=== PATIENT | female | born 1995 | race Hispanic/Latino ===

== ENCOUNTER 2017-12-30 10:03 | Emergency (ER) | payer SELFPAY ==
[2017-12-30 12:31] LABS: Bilirubin Negative (Negative); Blood, Urine Large (Negative); Clarity CLEAR (Clear); Glucose, Urine (Dipstick) >=1000 mg/dL (Negative); Leukocyte Negative (Negative); Nitrite Negative (Negative); Protein, Urine (Dipstick) Negative (Neg-Trace); pH, Urine 5.5 (5.0-9.0)
[2017-12-30 12:34] LABS: Specific Gravity, Urine 1.046 (1.002-1.036)
[2017-12-30 12:36] LABS: Bacteria/HPF 1+ HPF (None Seen); Hyaline Casts/LPF 0-3 HYALINE CAST LPF (0-3 Hyaline); RBC/HPF GREATER THAN 50-TNTC HPF (0-3); Squamous Epithelial 0-3 HPF (0-3)
--- NOTE | 2017-12-30 13:26 | ULT ---
PELVIC SONOGRAM TRANSABDOMINAL AND TRANSVAGINAL IMAGING WITH DUPLEX EVALUATION: History: Vaginal bleeding. Pelvic pain. FINDINGS: Urinary bladder is decompressed. Retroverted uterus measures 9.8 cm. Endometrium 2.6 cm with heteroge neous stripe. It extends into the cervical canal. No free fluid within the pelvis. Right ovary is 2.5 cm and left is 2.3 cm. Each contains follicles and demonstrates good color and spe ctral doppler flow. IMPRESSION: 1. Markedly endometrium of 2.6 cm. No evidence of intrauterine gestation. Close continued clinical an d sonographic follow up is required regarding possibility of ectopic . 2. Retroverted uterus. POS: [facility]
== END 2017-12-30 13:15 | disposition home or self-care (01) ==
LOC: ERS 10:03
DX: N93.9 Abnormal uterine and vaginal bleeding, unspecified (principal); E10.9 Type 1 diabetes mellitus without complications
CPT/HCPCS: 36415; 76856; 81003; 81015; 84702; 86900; 86901

== ENCOUNTER 2018-08-31 21:33 | Emergency (ER) | payer SELFPAY ==
[2018-08-31 22:42] LABS: Bilirubin Negative (Negative); Blood, Urine Large (Negative); Clarity CLOUDY (Clear); Glucose, Urine (Dipstick) >=1000 mg/dL (Negative); Leukocyte Negative (Negative); Nitrite Negative (Negative); Protein, Urine (Dipstick) Negative (Neg-Trace); Specific Gravity, Urine 1.034 (1.002-1.036); Urobilinogen 0.2 mg/dL (0.2-1.0); pH, Urine 6.5 (5.0-9.0)
[2018-08-31 22:44] LABS: Bacteria/HPF None Seen HPF (None Seen); Hyaline Casts/LPF 0-3 HYALINE CAST LPF (0-3 Hyaline); Pathc Cast-AUWi Flag 0.27 (0-2.49); RBC/HPF GREATER THAN 50-TNTC HPF (0-3); Squamous Epithelial 0-3 HPF (0-3)
[2018-08-31 23:00] LABS: ALT (SGPT) 12 U/L (8-55); AST (SGOT) 10 U/L (5-34); Albumin 4.1 g/dL (3.5-5.0); Alkaline Phosphatase 141 U/L (40-150); Anion Gap 15 mmol/L (10-20); BUN (Urea Nitrogen) 11 mg/dL (7.0-18.7); Bilirubin, Total 0.2 mg/dL (0.2-1.2); Calc. Creatinine Clearance 0 mL/min (70-130); Calcium 9.7 mg/dL (7.8-10.44); Carbon Dioxide 23 mmol/L (22-29); Chloride 97 mmol/L (98-107); Estimated GFR-MDRD 82; Globulin 3.8 g/dL (2.4-3.5); Glucose 546 mg/dL (70-105); Potassium 4.1 mmol/L (3.5-5.1); Protein, Total 7.9 g/dL (6.0-8.3); Sodium 131 mmol/L (136-145)
[2018-08-31 23:09] LABS: #Basophils 0.1 thou/uL (0.0-0.2); #Eosinphils 0.2 thou/uL (0.0-0.7); #Lymphocytes 3.8 thou/uL (1.20-3.40); #Monocytes 0.8 thou/uL (0.11-0.59); #Neutrophils 6.5 thou/uL (1.40-6.50); %Basophils 0.7 % (0.0-1.0); %Eosinophils 1.6 % (0.0-10.0); %Lymphocytes 33.2 % (21.0-51.0); %Monocytes 7.1 % (0.0-10.0); %Neutrophils 57.4 % (42.0-75.0); Hemoglobin 12.4 g/dL (12.0-16.0); Mean Corpuscular HGB CONC 32.2 g/dL (32.0-36.0); Mean Corpuscular Hemoglobin 23.7 pg (27.0-31.0); Mean Corpuscular Volume 73.8 fL (78.0-98.0); Mean Platelet Volume 8.3 fL (7.4-10.4); Platelet Count 427 thou/uL (130-400); RBC Distribution Width 14.3 % (11.5-14.5); Red Blood Cell (RBC) Count 5.24 mill/uL (4.20-5.40); White Blood Cell (WBC) Count 11.4 thou/uL (4.8-10.8)
--- NOTE | 2018-09-01 07:33 | ULT ---
PELVIC ULTRASOUND CHU SCALE AND DOPPLER COLOR FLOW IMAGING WITH SPECTRAL ANALYSIS PERFORMED: INDICATION: Pain, vaginal bleeding, positive beta HCG is reported. FINDINGS: There is evidence of a gestational sac with an internal yolk sac. pole is not elicited. On th e basis of sonographic imaging, this corresponds to an approximate 6-week 2-day gestation. Doppler e valuation is performed at the adnexa bilaterally which does reveal vascularity of each ovary, with do cumented waveforms. There is no significant free pelvic fluid. IMPRESSION: Evidence of gestational sac with internal yolk sac. pole is not demonstrated on this exam. Th e gestational age by ultrasound of 6 weeks 2 days typically reveals viable intrauterine gestation wit h cardiac activity, although this is not elicited on this exam. Therefore, recommend short-term imag ing followup as well as beta HCG values to exclude the possibility of a failed 1st trimester pregnanc y which cannot be excluded on the basis of this exam. CODE T
== END 2018-09-01 00:44 | disposition home or self-care (01) ==
LOC: ERS 21:33
DX: O20.0 Threatened abortion (principal); Z3A.01 Less than 8 weeks gestation of pregnancy
CPT/HCPCS: 36415; 76856; 80053; 81003; 81015; 84702; 85025; 86900; 86901

== ENCOUNTER 2019-12-12 03:44 | Inpatient (IN) | payer OTHER, SELFPAY ==
[2019-12-12] MEDS ORDERED: Ondansetron PF 4 MG/2 ML Vial ONE ×2 (04:33→04:37)
[2019-12-12] MEDS ORDERED: Morphine 4 MG/ML VIAL ONE (04:33)
[2019-12-12 04:41] LABS: Hemoglobin 12.9 g/dL (12.0-16.0); Mean Corpuscular HGB CONC 30.7 g/dL (32.0-36.0); Mean Corpuscular Hemoglobin 25.4 pg (27.0-31.0); Mean Corpuscular Volume 82.9 fL (78.0-98.0); Mean Platelet Volume 9.2 fL (7.4-10.4); Platelet Count 344 thou/uL (130-400); RBC Distribution Width 13.7 % (11.5-14.5); Red Blood Cell (RBC) Count 5.08 mill/uL (4.20-5.40); White Blood Cell (WBC) Count 28.1 thou/uL (4.8-10.8)
[2019-12-12 04:42] LABS: BHCG - Serum Negative (NEGATIVE); Pregs Control Background? CLEAR/WHITE (CLR/WHITE); Pregs Control Bar Appear? YES (CONTROL BAR)
[2019-12-12 04:52] LABS: Bacteria/HPF None Seen HPF (None Seen); Bilirubin Negative (Negative); Blood, Urine Negative (Negative); Clarity Clear (Clear); Glucose, Urine (Dipstick) Greater than 1000 mg/dL (Negative); Ketone, Urine Greater than 150 mg/dL (Negative); Leukocyte Negative Leu/uL (Negative); Nitrite Negative (Negative); Protein, Urine (Dipstick) 70 mg/dL (Neg-Trace); RBC/HPF 0-3 HPF (0-3); Specific Gravity, Urine 1.028 (1.002-1.036); Squamous Epithelial 0-3 HPF (0-3); Urobilinogen Normal mg/dL (Less than 2); pH, Urine 5.5 (5.0-9.0)
[2019-12-12 04:57] LABS: ALT (SGPT) Less than 7 U/L (8-55); AST (SGOT) 6 U/L (5-34); Alkaline Phosphatase 121 U/L (40-110); BUN (Urea Nitrogen) 4 mg/dL (7.0-18.7); Bilirubin, Total 0.3 mg/dL (0.2-1.2); Calc. Creatinine Clearance 0 mL/min (70-130); Calcium 8.8 mg/dL (7.8-10.44); Chloride 108 mmol/L (98-107); Estimated GFR-MDRD 58; Globulin 3.7 g/dL (2.4-3.5); Glucose 450 mg/dL (70-105); Protein, Total 7.7 g/dL (6.0-8.3); Sodium 136 mmol/L (136-145)
[2019-12-12 05:00] LABS: Magnesium 1.6 mg/dL (1.6-2.6); Phosphorus 4.2 mg/dL (2.3-4.7)
[2019-12-12 05:01] LABS: Carbon Dioxide Less than 8 mmol/L (22-29)
[2019-12-12] MEDS ORDERED: Insulin Regular 300 UNITS/3 ML VIAL ONE (05:03)
[2019-12-12 05:23] LABS: MDiff Complete? YES
[2019-12-12 05:24] LABS: Band 34 % (5-11); Lymphocytes 18 % (21-51); Metamyelocyte 1 % (0-0); Monocytes 6 % (0-10); Myelocyte 1 % (0-0); Neutrophil 40 % (42-75); Platelet Morphology Comment Appears Adequate
[2019-12-12] MEDS ORDERED: cefTRIAXone\\ROCEPHIN 2 GM VIAL ONE (05:53)
[2019-12-12] MEDS ORDERED: Azithromycin 500 MG VIAL ONE (05:53)
[2019-12-12 06:42] LABS: pH, Arterial 7.07 (7.35-7.45)
[2019-12-12 06:44] LABS: Actual Bicarbonate (HCO3a) 3.4 mEq/L (22-28); Base Excess (BEa) -24.6 mEq/L (-2.0 to +3.0); Carboxyhemoglobin (COHb) 0.3 gm% (0.0-3.0); Hemoglobin (Hb) 12.9 g/dL (12.0-16.0)
[2019-12-12 06:45] LABS: Analyzer IN Cardio ER; Potassium - ABG Lab 3.36 mmol/L (3.70-5.30); Puncture Site LBRACH
--- NOTE | 2019-12-12 06:51 | PDOC.HHP ---
Hospitalist HPI - History of Present Illness neck pain History of Present Illness: THis is a 24 year old female with type I diabetes who presented to the ER with neck pain. THe patient states that she was laying on the side of her bed when she started experiencing severe neck pain. She switched positions and turned in a prone position which made the pain worst. SHe reports the neck pain was so severe she could not even stand up. She had no tingling or numbness in her arms , no chest pain, but some shortness of breath. She denied headache, photophobia , nausea, vomiting, abdominal pain, polydipsia or polyuria. She denies diarrhea or constipation. She had a cough which has resolved, no fevers or chills. THe patient states she takes levemir 20 units bid at home, took both of her doses yesterday. She states she ate two slices of wheat bread with turkey for dinner last night. Her blood sugars typically range from 160-200 . She states she had Salmonella food poisoning earlier this spring and lost 20 pounds, and has been unable to gain weight since then. Currently her weight is 65 pounds per nursing. ED Course: THe patient presented to the ER and was noted to be afebrile but tachycardic. Labs were notable for a glucose of 450, bicarbonate of 8, betahydroxybutyrate of 8.87. THe patient had a normal chest Xray. ABG was ordered and pending. Morphine was ordered for neck pain with improvement. Currently patient states she is thirsty. Hospitalist ROS - Review of Systems Constitutional: denies: fever, chills Eyes: denies: pain, vision change Respiratory: reports: cough (resolved), shortness of breath Cardiovascular: reports: palpitations Gastrointestinal: denies: nausea, vomiting, abdominal pain, diarrhea Genitourinary: denies: dysuria, frequency, incontinence Musculoskeletal: reports: neck pain. denies: arm pain, back pain Skin: denies: rash, lesions Neurological: denies: weakness, numbness Hospitalist History - Past Medical History Other Medical History: Type I Diabetes - Past Surgical History Past Surgical History: reports: no pertinent history - Family History Other Family History: type I diabetes - Social History Smoking Status: Never smoker Alcohol: reports: None - Exam General Appearance: NAD, awake alert General - other findings: appears slightly underweight Eye: PERRL, anicteric sclera ENT: normocephalic atraumatic, no oropharyngeal lesions Neck: no JVD Heart: RRR, no murmur, no gallops, no rubs Respiratory: CTAB, no wheezes, no rales, no ronchi Gastrointestinal: soft, non-tender, non-distended, normal bowel sounds Extremities: no cyanosis, no clubbing, no edema Skin: normal turgor, no lesions, no rashes Neurological: cranial nerve grossly intact, normal sensation to touch, no focal deficits, no new deficit Neurological - other findings: no nuchal rigidity, negative Kernig and Brudzinski sign Musculoskeletal: normal tone, normal strength, no muscle wasting Musculoskeletal - other findings: full ROM Of neck Psychiatric: normal affect, normal behavior, A&O x 3 Hospitalist Results - Labs Result Diagrams: 12/12/19 04:10 12/12/19 04:10 Lab results: WBC 28.1 thou/uL (4.8-10.8) H 12/12/19 04:10 Hgb 12.9 g/dL (12.0-16.0) 12/12/19 04:10 Hct 42.2 % (36.0-47.0) 12/12/19 04:10 MCV 82.9 fL (78.0-98.0) 12/12/19 04:10 Plt Count 344 thou/uL (130-400) 12/12/19 04:10 Band Neuts % (Manual) 34 % (5-11) H 12/12/19 04:10 ABG pH 7.07 (7.35-7.45) L* 12/12/19 06:35 ABG pCO2 12.0 mmHg (35.0-45.0) L* 12/12/19 06:35 ABG pO2 96.0 mmHg (80.0-100.0) 12/12/19 06:35 Sodium 136 mmol/L (136-145) 12/12/19 04:10 Potassium 4.0 mmol/L (3.5-5.1) 12/12/19 04:10 Chloride 108 mmol/L (98-107) H 12/12/19 04:10 Carbon Dioxide Less than 8 mmol/L (22-29) L* 12/12/19 04:10 BUN 4 mg/dL (7.0-18.7) L 12/12/19 04:10 Creatinine 1.14 mg/dL (0.6-1.1) H 12/12/19 04:10 Glucose 450 mg/dL (70-105) H 12/12/19 04:10 Lactic Acid 3.3 mmol/L (0.5-2.2) H 12/12/19 04:10 Calcium 8.8 mg/dL (7.8-10.44) 12/12/19 04:10 Total Bilirubin 0.3 mg/dL (0.2-1.2) 12/12/19 04:10 AST 6 U/L (5-34) 12/12/19 04:10 ALT Less than 7 U/L (8-55) L 12/12/19 04:10 Alkaline Phosphatase 121 U/L (40-110) H 12/12/19 04:10 Serum Total Protein 7.7 g/dL (6.0-8.3) 12/12/19 04:10 Albumin 4.0 g/dL (3.5-5.0) 12/12/19 04:10 Urine Ketones Greater than 150 mg/dL (Negative) A 12/12/19 04:25 Urine Blood Negative (Negative) 12/12/19 04:25 Urine Nitrite Negative (Negative) 12/12/19 04:25 Ur Leukocyte Esterase Negative Joey/uL (Negative) 12/12/19 04:25 Urine RBC 0-3 HPF (0-3) 12/12/19 04:25 Urine WBC 4-6 HPF (0-3) A 12/12/19 04:25 Ur Squamous Epith Cells 0-3 HPF (0-3) 12/12/19 04:25 Urine Bacteria None Seen HPF (None Seen) 12/12/19 04:25 - EKG Interpretation EKG: sinus tachycardia Hospitalist H&P A/P - Plan Plan: This is a 24 year old female with type I Diabetes who presented with DKA DKA - patient was started on insulin drip. Will check fingersticks q1 hour NEck pain - check neck X ray. Likely from severe dehydration - pt reports improvement #Mild OCTAVIO #Lactic acidosis - creatinine 1.1, continue IV fluids and trend BMP in the afternoon - was 3.3, will repeat in afternoon Leukocytosis - WBC noted to be 28, no signs of infection currently will hold off on antibiotics - CXR and UA normal Mild ALP elevation - asymptomatic with no abd pain, will monitor DVT prophylaxis: heparin SC Code status: full code
[2019-12-12] MEDS ORDERED: Dextrose 5 %-0.45 % NaCl 1,000 ML IV PRN (06:54)
[2019-12-12] MEDS ORDERED: Sodium Chloride 0.9% 1,000 ML IV PRN ×4 (06:54)
[2019-12-12] MEDS ORDERED: Electrolyte Replacement Protoc 1 EACH EACH IVPB ONE (06:54)
[2019-12-12] MEDS ORDERED: NS 0.9% w/ 20 MEQ KCL 1,000 ML IV PRN ×2 (06:54)
[2019-12-12] MEDS ORDERED: NS 0.9% w/ 20 MEQ KCL 1,000 ML IV SCH (07:00)
[2019-12-12] MEDS ORDERED: Electrolyte Replacement Protocol FS PRN (07:15)
--- NOTE | 2019-12-12 07:19 | RAD ---
SINGLE VIEW CHEST: Date: 12/12/2019 COMPARISON: None. HISTORY: Cough with back and neck pain. FINDINGS: Single view of the chest shows a normal sized cardiomediastinal silhouette. Opacities are seen projec ting over both lung bases, which likely represent nipple shadows. No definite consolidation, mass, or pleural effusion seen. IMPRESSION: No evidence of acute cardiopulmonary disease. POS: [facility]
[2019-12-12 07:59] LABS: Lactic Acid 2.2 mmol/L (0.5-2.2)
[2019-12-12] MEDS ORDERED: Magnesium 2 GM/50 ML 2 GM in Premix Bag 1 BAG IVPB SCH (08:00)
[2019-12-12 08:05] LABS: BUN (Urea Nitrogen) Less than 4 mg/dL (7.0-18.7); Calc. Creatinine Clearance 0 mL/min (70-130); Calcium 8.2 mg/dL (7.8-10.44); Chloride 113 mmol/L (98-107); Estimated GFR-MDRD 79; Glucose 306 mg/dL (70-105); Potassium 3.2 mmol/L (3.5-5.1); Sodium 137 mmol/L (136-145)
[2019-12-12 08:10] LABS: Carbon Dioxide Less than 8 mmol/L (22-29)
[2019-12-12] MEDS ORDERED: Potassium Chloride 40 MEQ in Sodium Chloride 0.9% 250 ML 250 ML IVPB SCH ×2 (08:30→16:00)
--- NOTE | 2019-12-12 09:10 | RAD ---
3 VIEWS CERVICAL SPINE: Date: 12/12/2019 COMPARISON: None. HISTORY: Neck pain, cough. FINDINGS: Three views of the cervical spine show normal height and alignment of the vertebral bodies and interv ertebral discs without fracture or subluxation. No degenerative changes are seen. No prevertebral sof t tissue swelling is seen. IMPRESSION: Unremarkable exam. POS: [facility]
[2019-12-12 11:36] LABS: Anion Gap 16 mmol/L (10-20); BUN (Urea Nitrogen) Less than 4 mg/dL (7.0-18.7); Calc. Creatinine Clearance 0 mL/min (70-130); Calcium 8.2 mg/dL (7.8-10.44); Carbon Dioxide 10 mmol/L (22-29); Chloride 115 mmol/L (98-107); Estimated GFR-MDRD Greater than 90; Glucose 150 mg/dL (70-105); Sodium 138 mmol/L (136-145)
[2019-12-12 11:39] LABS: Potassium 2.9 mmol/L (3.5-5.1)
[2019-12-12] MEDS ORDERED: Acetaminophen 325 MG TAB ONE (12:35)
[2019-12-12] MEDS ORDERED: Iopamidol-370 76% 500 ML 1 ML ONE (13:22)
[2019-12-12 13:26] LABS: Magnesium 1.1 mg/dL (1.6-2.6); Phosphorus 1.3 mg/dL (2.3-4.7)
[2019-12-12] MEDS ORDERED: Potassium Phosphate 22 MMOL in Sodium Chloride 0.9% 250 ML 250 ML IVPB SCH (13:45)
--- NOTE | 2019-12-12 13:54 | CT ---
EXAM: CTA of the chest HISTORY: Neck and back pain for one hour COMPARISON: None TECHNIQUE: Multiple contiguous axial images were obtained a CTA of the chest with contrast per pulmon rosmery embolism protocol. 3-D oblique MIP reformats and direct coronal reformats were performed. FINDINGS: HEART: Normal in size without focal cardiac abnormality. PULMONARY ARTERIES: Normal in caliber without filling defects to suggest pulmonary emboli. MEDIASTINUM: No hilar or mediastinal lymphadenopathy. LUNGS: Multifocal areas of airspace opacity are seen in the left upper and lower lobes with more subt le infiltrates in the right lower lobe. PLEURAL SPACE: No pleural effusion or pneumothorax. CHEST WALL SOFT TISSUES: Unremarkable VISUALIZED OSSEOUS STRUCTURES: No acute abnormality. VISUALIZED SUBDIAPHRAGMATIC STRUCTURES: Unremarkable IMPRESSION: 1. No evidence of pulmonary thromboembolism 2. Multifocal pneumonia
[2019-12-12] MEDS ORDERED: Magnesium Sulfate 4 GM in Sodium Chloride 0.9% 250 ML 250 ML IVPB SCH (15:00)
[2019-12-12 16:15] LABS: Anion Gap 17 mmol/L (10-20); BUN (Urea Nitrogen) Less than 4 mg/dL (7.0-18.7); Calc. Creatinine Clearance 0 mL/min (70-130); Calcium 8.5 mg/dL (7.8-10.44); Carbon Dioxide 10 mmol/L (22-29); Chloride 114 mmol/L (98-107); Estimated GFR-MDRD Greater than 90; Glucose 117 mg/dL (70-105); Sodium 138 mmol/L (136-145)
[2019-12-12 16:16] LABS: Potassium 2.8 mmol/L (3.5-5.1)
[2019-12-12 16:47] VITALS: BMI 16.2
--- NOTE | 2019-12-12 17:41 | PDOC.EVN ---
Event Note - Event Note Event Note: Seen and examined in the emergency department. Patient with significant pulmonary complaints. I added a CT angiography of the chest, please see full report for details, there is no pulmonary embolism identified however there is a bilateral pneumonia with left upper, left lower, and faint right lower infiltrates. Patient does deny definitive covid exposure, however at this time I will add a covid test in place her on respiratory precautions until negative test. I have started IV antibiotics, elevated WBC count which points against covid. Patient's DKA is improving with her anion gap normalizing, bicarbonate normalizing. She is on appropriate DKA protocol and replacing electrolytes as needed.
[2019-12-12 18:38] LABS: Anion Gap 16 mmol/L (10-20); BUN (Urea Nitrogen) Less than 4 mg/dL (7.0-18.7); Calc. Creatinine Clearance 86 mL/min (70-130); Calcium 8.1 mg/dL (7.8-10.44); Carbon Dioxide 10 mmol/L (22-29); Chloride 113 mmol/L (98-107); Estimated GFR-MDRD Greater than 90; Glucose 158 mg/dL (70-105); Potassium 3.6 mmol/L (3.5-5.1); Sodium 135 mmol/L (136-145)
[2019-12-12] MEDS ORDERED: Benzonatate 100 MG CAP PO PRN (19:45)
[2019-12-12] MEDS ORDERED: Docusate 100 MG CAP PO PRN (19:45)
[2019-12-12] MEDS ORDERED: diphenhydrAMINE 25 MG CAP PO PRN (19:45)
[2019-12-12] MEDS ORDERED: Labetalol HCl 100 MG/20 ML VIAL SLOW IVP PRN (19:45)
[2019-12-12] MEDS: D5 1/2 NS w/20 mEq KCL 1,000 ML IV PRN ×2 (20:02→23:41)
[2019-12-12] MEDS ORDERED: Melatonin 3 MG TAB PO PRN (21:00)
[2019-12-12 22:10] LABS: Anion Gap 17 mmol/L (10-20); BUN (Urea Nitrogen) Less than 4 mg/dL (7.0-18.7); Calc. Creatinine Clearance 82 mL/min (70-130); Calcium 8.1 mg/dL (7.8-10.44); Carbon Dioxide 11 mmol/L (22-29); Chloride 110 mmol/L (98-107); Estimated GFR-MDRD Greater than 90; Glucose 307 mg/dL (70-105); Potassium 3.5 mmol/L (3.5-5.1); Sodium 134 mmol/L (136-145)
[2019-12-13 02:59] LABS: Anion Gap 13 mmol/L (10-20); BUN (Urea Nitrogen) Less than 4 mg/dL (7.0-18.7); Calc. Creatinine Clearance 87 mL/min (70-130); Calcium 8.4 mg/dL (7.8-10.44); Carbon Dioxide 13 mmol/L (22-29); Chloride 111 mmol/L (98-107); Estimated GFR-MDRD Greater than 90; Glucose 271 mg/dL (70-105); Sodium 134 mmol/L (136-145)
[2019-12-13] MEDS: D5 1/2 NS w/20 mEq KCL 1,000 ML IV PRN ×5 (03:35→23:17)
[2019-12-13] MEDS: cefTRIAXone\\ROCEPHIN 2 GM in Sodium Chloride 0.9% 100 ML IVPB SCH (04:50)
[2019-12-13] MEDS: Acetaminophen 500 MG TAB PO PRN ×2 (04:51→12:02)
[2019-12-13] MEDS ORDERED: Potassium Chloride 20 MEQ TAB PO SCH ×2 (06:00→10:00)
[2019-12-13] MEDS ORDERED: Magnesium 2 GM/50 ML 2 GM in Premix Bag 1 BAG IVPB SCH (06:00)
[2019-12-13] MEDS: HUMULIN R 100 UNITS in Sodium Chloride 0.9% 100 ML IVPB SCH (06:18)
[2019-12-13 06:49] LABS: Anion Gap 10 mmol/L (10-20); BUN (Urea Nitrogen) Less than 4 mg/dL (7.0-18.7); Calc. Creatinine Clearance 105 mL/min (70-130); Calcium 8.1 mg/dL (7.8-10.44); Carbon Dioxide 15 mmol/L (22-29); Chloride 110 mmol/L (98-107); Estimated GFR-MDRD Greater than 90; Glucose 214 mg/dL (70-105); Sodium 132 mmol/L (136-145)
[2019-12-13 06:53] LABS: Potassium 2.7 mmol/L (3.5-5.1)
[2019-12-13] MEDS: Azithromycin 500 MG in Sodium Chloride 0.9% 250 ML 250 ML IVPB SCH (08:01)
[2019-12-13] MEDS ORDERED: HYDROcodone/Acetaminophen 5/325 mg Tablet PO PRN (10:02)
[2019-12-13] MEDS ORDERED: HYDROcodone/Acetaminophen 7.5/325 mg Tablet PO PRN (10:03)
[2019-12-13 12:27] LABS: #Basophils 0.1 thou/uL (0.0-0.2); #Lymphocytes 1.7 thou/uL (1.20-3.40); #Monocytes 0.8 thou/uL (0.11-0.59); #Neutrophils 9.2 thou/uL (1.40-6.50); %Basophils 0.4 % (0.0-1.0); %Eosinophils 0.4 % (0.0-10.0); %Lymphocytes 14.8 % (21.0-51.0); %Monocytes 6.4 % (0.0-10.0); Hemoglobin 11.9 g/dL (12.0-16.0); Mean Corpuscular HGB CONC 32.1 g/dL (32.0-36.0); Mean Corpuscular Hemoglobin 26.9 pg (27.0-31.0); Mean Corpuscular Volume 83.9 fL (78.0-98.0); Mean Platelet Volume 9.4 fL (7.4-10.4); Platelet Count 205 thou/uL (130-400); RBC Distribution Width 13.8 % (11.5-14.5); Red Blood Cell (RBC) Count 4.43 mill/uL (4.20-5.40); White Blood Cell (WBC) Count 11.8 thou/uL (4.8-10.8)
[2019-12-13 12:28] LABS: SARS-CoV-2 by NAA DETECTED (NotDetected); SARS-CoV-2 orf1ab Positive
[2019-12-13 12:29] LABS: SARS-CoV-2 MS2 Positive; SARS-CoV-2 N Gene Positive; SARS-CoV-2 S Gene Positive
[2019-12-13 12:39] LABS: Anion Gap 11 mmol/L (10-20); BUN (Urea Nitrogen) Less than 4 mg/dL (7.0-18.7); Calc. Creatinine Clearance 123 mL/min (70-130); Calcium 8.4 mg/dL (7.8-10.44); Carbon Dioxide 16 mmol/L (22-29); Chloride 114 mmol/L (98-107); Estimated GFR-MDRD Greater than 90; Glucose 113 mg/dL (70-105); Sodium 137 mmol/L (136-145)
--- NOTE | 2019-12-13 14:55 | CON ---
DATE OF CONSULTATION: HISTORY OF PRESENT ILLNESS: Domi Letser is a 24-year-old female. She is 27 kg, presented to the ER with neck pain. Respiratory rate is 14, blood pressure is good. I do not see a temperature recording in the ER, but her saturations are 100%. Apparently, she then had cough with yellow sputum, but no fever or chills. Apparently, she has type-1 diabetes, takes Levemir 20 units twice a day. PAST MEDICAL HISTORY: Pertinent for diabetes. PREVIOUS SURGERIES: None. CHRONIC MEDICATIONS: Levemir 20 units twice a day. SOCIAL HISTORY: No alcohol or tobacco abuse. ALLERGIES: NONE. REVIEW OF SYSTEMS: Ten-point is negative. PHYSICAL EXAMINATION: VITAL SIGNS: Temperature is 100.8, blood pressure is 88/48, pulse is 61, respiratory rate 18, sats are 90%. CHEST: Crackles without any wheezing. CARDIAC: Normal S1, S2. No gallops. ABDOMEN: No masses. LABORATORY DATA: Blood sugar is 214, bicarb is 15, potassium is 2.7, sodium 132. X-ray shows bilateral infiltrates. CT scan confirms this. Cervical spine x-rays were negative. So far, cultures are negative. IMPRESSION AND PLAN: 1. Bilateral bronchopneumonia, rule out coronavirus positive pneumonia. 2. Uncontrolled diabetes. 3. Electrolyte imbalance. PLAN: I agree with empiric broad-spectrum antibiotics, low-dose steroids. Continue insulin protocol, I have restarted home Levemir. Hopefully, she will not get acidotic. Cultures, sputum if possible. We will follow while on the MICU. Depending on the results of the serology, further recommendation. Consultation note, 70 minutes, 50% direct patient care. Job ID: [id number]
--- NOTE | 2019-12-13 15:47 | PDOC.HOSPP ---
- Subjective Subjective: Seen and examined. She states that she is feeling better than yesterday. She is looking much better after the addition of antibiotics. Her DKA is resolving though not completely resolved yet. We are starting diet. She is feeling hungry and has more energy. She has had only mild cough. She is febrile this morning. Pulmonology on the case. - Objective Vital Signs & Weight: Vital Signs (12 hours) Temp Pulse Ox 12/13/19 08:00 99.0 F 100 12/13/19 07:40 100.8 F H 12/13/19 03:53 101.5 F H Weight Weight 91 lb 14.4 oz Most Recent Monitor Data Heart Rate from ECG 88 NIBP 88/64 NIBP BP-Mean 72 Respiration from ECG 17 SpO2 91 I&O: 12/12/19 12/13/19 12/14/19 06:59 06:59 06:59 Intake Total 3600 Output Total 1350 1300 Balance 2250 -1300 Result Diagrams: 12/13/19 12:18 12/13/19 12:18 Radiology Reviewed by me: Yes Hospitalist ROS - Review of Systems All other systems reviewed; all pertinent +/- noted in HPI/Subj - Medication Medications: Active Medications Generic Name Dose Route Start Last Admin Trade Name Freq PRN Reason Stop Dose Admin Acetaminophen 1,000 mg 12/13/19 04:08 12/13/19 12:02 Tylenol PO 1,000 mg Q6H PRN Administration .FEVER Benzonatate 100 mg 12/12/19 19:45 12/13/19 04:51 Tessalon PO 100 mg Q4H PRN Administration Cough Insulin Human Regular 100 101 mls @ 0 mls/hr 12/12/19 07:00 12/13/19 06:18 units/ Sodium Chloride IVPB 101 mls INF FERNANDO Administration Protocol Titrate Potassium Chloride/Dextrose/Sod Cl 1,000 mls @ 250 mls/hr 12/12/19 06:54 12:06 D5 1/2 Ns W/20 Meq Kcl IV 1,000 mls .Q4H PRN Administration Step 4 of DKA Protocol Protocol Azithromycin 500 mg/ Sodium 250 mls @ 250 mls/hr 12/13/19 09:00 12/13/19 08: 01 Chloride IVPB 250 mls 0900 FERNANDO Administration Ceftriaxone Sodium 2 gm/ 100 mls @ 200 mls/hr 12/13/19 06:00 12/13/19 04:50 Sodium Chloride IVPB 100 mls 0600 FERNANDO Administration - Exam General Appearance: awake alert, ill appearing General - other findings: Cachectic Eye: anicteric sclera ENT: normocephalic atraumatic, moist mucosa Neck: supple, symmetric Heart: RRR, no murmur, no gallops, no rubs Respiratory: no rales, normal chest expansion, no tachypnea, rhonchi, wheezes Gastrointestinal: soft, non-tender, no guarding, no rigidity Extremities: no edema Skin: no lesions, no rashes Neurological: cranial nerve grossly intact, no focal deficits Musculoskeletal: generalized weakness, diffuse muscle atrophy Psychiatric: normal affect, normal behavior, A&O x 3 Hosp A/P (1) Pneumonia due to COVID-19 virus Code(s): U07.1 - COVID-19; J12.89 - OTHER VIRAL PNEUMONIA Status: Acute (2) Bilateral pneumonia Code(s): J18.9 - PNEUMONIA, UNSPECIFIED ORGANISM Status: Acute (3) DKA (diabetic ketoacidoses) Code(s): E11.10 - TYPE 2 DIABETES MELLITUS WITH KETOACIDOSIS WITHOUT COMA Status: Acute (4) Severe protein-calorie malnutrition Code(s): E43 - UNSPECIFIED SEVERE PROTEIN-CALORIE MALNUTRITION Status: Acute (5) Acidosis Code(s): E87.2 - ACIDOSIS Status: Acute (6) Fever Code(s): R50.9 - FEVER, UNSPECIFIED Status: Acute (7) Sepsis Code(s): A41.9 - SEPSIS, UNSPECIFIED ORGANISM Status: Acute - Plan Plan: intermediate medical care unit pulmonology/critical-care consultation, recommendations appreciated on titratable insulin drip for DKA protocol home long-acting insulin being started at lower dose encourage oral intake replace electrolytes as needed IV fluids pulmonary specific antibiotics steroids Covid positive Covid pneumonia versus bacterial pneumonia is likely the inciting event that started diabetic ketoacidosis continue other home medications as able blood pressure control blood sugar control G.I. prophylaxis DVT prophylaxis
[2019-12-13 16:40] LABS: Anion Gap 10 mmol/L (10-20); BUN (Urea Nitrogen) Less than 4 mg/dL (7.0-18.7); Calc. Creatinine Clearance 120 mL/min (70-130); Calcium 7.9 mg/dL (7.8-10.44); Carbon Dioxide 16 mmol/L (22-29); Chloride 114 mmol/L (98-107); Estimated GFR-MDRD Greater than 90; Glucose 210 mg/dL (70-105); Potassium 3.9 mmol/L (3.5-5.1); Sodium 136 mmol/L (136-145)
[2019-12-13] MEDS: methylPREDNISolone Sod Succ 40 MG VIAL IVP SCH (20:05)
[2019-12-13] MEDS: Insulin Glargine 15 UNITS in Pre-Filled Syringe 1 EACH SC SCH (20:05)
[2019-12-13 20:46] LABS: Anion Gap 15 mmol/L (10-20); BUN (Urea Nitrogen) Less than 4 mg/dL (7.0-18.7); Calc. Creatinine Clearance 111 mL/min (70-130); Calcium 8.1 mg/dL (7.8-10.44); Carbon Dioxide 16 mmol/L (22-29); Chloride 108 mmol/L (98-107); Estimated GFR-MDRD Greater than 90; Glucose 199 mg/dL (70-105); Potassium 3.5 mmol/L (3.5-5.1); Sodium 135 mmol/L (136-145)
[2019-12-13] MEDS ORDERED: methylPREDNISolone Sod Succ/PF 125 MG/2 ML VIAL IVP SCH ×2 (21:00)
[2019-12-14] MEDS: HUMULIN R 100 UNITS in Sodium Chloride 0.9% 100 ML IVPB SCH (00:01)
[2019-12-14 00:55] LABS: Anion Gap 12 mmol/L (10-20); BUN (Urea Nitrogen) Less than 4 mg/dL (7.0-18.7); Calc. Creatinine Clearance 123 mL/min (70-130); Calcium 8.2 mg/dL (7.8-10.44); Carbon Dioxide 18 mmol/L (22-29); Chloride 109 mmol/L (98-107); Estimated GFR-MDRD Greater than 90; Glucose 162 mg/dL (70-105); Potassium 3.4 mmol/L (3.5-5.1); Sodium 136 mmol/L (136-145)
[2019-12-14] MEDS: D5 1/2 NS w/20 mEq KCL 1,000 ML IV PRN (05:44)
[2019-12-14] MEDS: cefTRIAXone\\ROCEPHIN 2 GM in Sodium Chloride 0.9% 100 ML IVPB SCH (05:44)
[2019-12-14] MEDS ORDERED: Potassium Chloride 20 MEQ TAB PO SCH (06:30)
[2019-12-14 07:31] LABS: Anion Gap 10 mmol/L (10-20); BUN (Urea Nitrogen) Less than 4 mg/dL (7.0-18.7); Calc. Creatinine Clearance 141 mL/min (70-130); Carbon Dioxide 23 mmol/L (22-29); Chloride 108 mmol/L (98-107); Estimated GFR-MDRD Greater than 90; Glucose 164 mg/dL (70-105); Potassium 3.8 mmol/L (3.5-5.1); Sodium 137 mmol/L (136-145)
--- NOTE | 2019-12-14 10:06 | PRG ---
DATE OF SERVICE: SUBJECTIVE: This morning, she is better, awake, alert, and responsive. I's and O's have been consistently negative. OBJECTIVE: VITAL SIGNS: Sats are 100% on 2 L, blood pressure 94/65, respiratory rate 18, pulse 80. LABORATORY DATA: She was positive for the coronavirus. Blood sugars have improved. Acidosis is better, 23. Electrolytes are normal. ASSESSMENT AND PLAN: 1. Tejeda positive pneumonia. 2. Respiratory failure. 3. Diabetes type 1. She is on low-dose steroids. She probably needs to be switched over to normal saline and home medication resolved. We will follow. Job ID: [id number]
[2019-12-14] MEDS: Azithromycin 500 MG in Sodium Chloride 0.9% 250 ML 250 ML IVPB SCH (10:18)
[2019-12-14] MEDS: Insulin Glargine 15 UNITS in Pre-Filled Syringe 1 EACH SC SCH (10:18)
[2019-12-14] MEDS: methylPREDNISolone Sod Succ 40 MG VIAL IVP SCH (10:19)
[2019-12-14] MEDS ORDERED: Loperamide HCl 2 MG CAP PO PRN (12:05)
[2019-12-14 12:10] LABS: Anion Gap 10 mmol/L (10-20); BUN (Urea Nitrogen) Less than 4 mg/dL (7.0-18.7); Calc. Creatinine Clearance 111 mL/min (70-130); Calcium 8.1 mg/dL (7.8-10.44); Carbon Dioxide 22 mmol/L (22-29); Chloride 104 mmol/L (98-107); Estimated GFR-MDRD Greater than 90; Glucose 307 mg/dL (70-105); Potassium 4.3 mmol/L (3.5-5.1); Sodium 132 mmol/L (136-145)
[2019-12-14] MEDS ORDERED: HumaLOG 300 UNITS/3 ML VIAL SC PRN (14:23)
[2019-12-14] MEDS ORDERED: Dextrose 50% Abboject 50 ML SYRINGE SLOW IVP PRN (14:23)
[2019-12-14] MEDS ORDERED: Dextrose 5% in Water 1,000 ML IV PRN (14:23)
[2019-12-14] MEDS ORDERED: Insulin Glargine 8 UNITS in Pre-Filled Syringe SC SCH (14:30)
[2019-12-14] MEDS: Sodium Chloride 0.9% 1,000 ML IV SCH (14:48)
[2019-12-14] MEDS: HumaLOG 300 UNITS/3 ML VIAL SC PRN ×2 (14:49→16:57)
--- NOTE | 2019-12-14 15:53 | PDOC.HOSPP ---
- Subjective Subjective: Seen and examined. Patient clinically improving. Per DKA has resolved. I'm stopping the insulin drip. She is tolerating diet. With coven pneumonia she is having less shortness of breath, mild coughing. She has now developed diarrhea. Time was given for questions, all answered in detail. - Objective Vital Signs & Weight: Vital Signs (12 hours) Temp Pulse Ox 12/14/19 12:00 96.7 F L 12/14/19 08:00 100 12/14/19 07:00 97.8 F 12/14/19 04:00 98.7 F Weight Admit Weight 91 lb 14.4 oz Weight 91 lb 14.4 oz Most Recent Monitor Data Heart Rate from ECG 96 NIBP 89/68 NIBP BP-Mean 75 Respiration from ECG 19 SpO2 100 I&O: 12/13/19 12/14/19 12/15/19 06:59 06:59 06:59 Intake Total 3600 3995 2605 Output Total 1350 5300 2425 Balance 2250 -1305 180 Result Diagrams: 12/13/19 12:18 12/14/19 11:16 Additional Labs: Accuchecks 12/14/19 12/14/19 12/14/19 07:05 05:27 04:20 POC Glucose 136 H 100 121 H 12/14/19 12/14/19 12/14/19 03:10 01:17 00:28 POC Glucose 121 H 148 H 161 H Radiology Reviewed by me: Yes Hospitalist ROS - Review of Systems All other systems reviewed; all pertinent +/- noted in HPI/Subj - Medication Medications: Active Medications Generic Name Dose Route Start Last Admin Trade Name Freq PRN Reason Stop Dose Admin Acetaminophen 1,000 mg 12/13/19 04:08 12/13/19 12:02 Tylenol PO 1,000 mg Q6H PRN Administration .FEVER Benzonatate 100 mg 12/12/19 19:45 12/13/19 04:51 Tessalon PO 100 mg Q4H PRN Administration Cough Azithromycin 500 mg/ Sodium 250 mls @ 250 mls/hr 12/13/19 09:00 12/14/19 10: 18 Chloride IVPB 250 mls 0900 FERNANDO Administration Sodium Chloride 1,000 mls @ 50 mls/hr 12/14/19 14:30 12/14/19 14:48 Normal Saline 0.9% IV 1,000 mls .Q20H FERNANDO Administration Insulin Human Lispro 0 units 12/14/19 14:23 12/14/19 14:49 Humalog SC 6 unit .AGGRESSIVE SLIDING PRN Administration Aggressive Correctional Scale Sodium Chloride 10 ml 12/14/19 09:00 12/14/19 10:19 Flush - Normal Saline IVF 10 ml Q12HR FERNANDO Administration - Exam General Appearance: NAD, awake alert Eye: PERRL ENT: normocephalic atraumatic, moist mucosa Neck: supple, symmetric, no lymphadenopathy Heart: RRR, no murmur, no gallops, no rubs Respiratory: no rales, normal chest expansion, no tachypnea, rhonchi, wheezes Gastrointestinal: soft, non-tender, no guarding, no rigidity Extremities: no edema Skin: no lesions, no rashes Neurological: cranial nerve grossly intact, no focal deficits Musculoskeletal: generalized weakness Psychiatric: A&O x 3 Hosp A/P (1) Pneumonia due to COVID-19 virus Code(s): U07.1 - COVID-19; J12.89 - OTHER VIRAL PNEUMONIA Status: Acute (2) Bilateral pneumonia Code(s): J18.9 - PNEUMONIA, UNSPECIFIED ORGANISM Status: Acute (3) DKA (diabetic ketoacidoses) Code(s): E11.10 - TYPE 2 DIABETES MELLITUS WITH KETOACIDOSIS WITHOUT COMA Status: Acute (4) Severe protein-calorie malnutrition Code(s): E43 - UNSPECIFIED SEVERE PROTEIN-CALORIE MALNUTRITION Status: Acute (5) Acidosis Code(s): E87.2 - ACIDOSIS Status: Acute (6) Fever Code(s): R50.9 - FEVER, UNSPECIFIED Status: Acute (7) Sepsis Code(s): A41.9 - SEPSIS, UNSPECIFIED ORGANISM Status: Acute - Plan Plan: intermediate medical care unit pulmonology/critical-care consultation, recommendations appreciated Stop insulin drip, DKA resolved home long-acting insulin increase to home dose encourage oral intake replace electrolytes as needed IV fluids continued while having diarrhea pulmonary specific antibiotics steroids Covid positive Covid pneumonia versus bacterial pneumonia is likely the inciting event that started diabetic ketoacidosis continue other home medications as able Immodium for diarrhea blood pressure control blood sugar control G.I. prophylaxis DVT prophylaxis
[2019-12-14] MEDS: Insulin Glargine 20 UNITS in Pre-Filled Syringe 1 EACH SC SCH (21:34)
[2019-12-15] MEDS: HumaLOG 300 UNITS/3 ML VIAL SC PRN ×2 (06:46→16:17)
--- NOTE | 2019-12-15 07:49 | RAD ---
EXAM: Single view of the chest HISTORY: Bilateral pneumonia COMPARISON: 12/12/2019 FINDINGS: Single view of the chest shows a normal sized cardiomediastinal silhouette. There is opacit y in the left lung base. The bones are unremarkable IMPRESSION: Left lower lobe pneumonia
[2019-12-15] MEDS ORDERED: Dexamethasone 4 MG TAB PO SCH (08:00)
--- NOTE | 2019-12-15 11:45 | PRG ---
DATE OF SERVICE: 12/15/2019 SUBJECTIVE: Domi Lester is a 24-year-old female. This morning, she is better. X-ray, left-sided infiltrate. OBJECTIVE: VITAL SIGNS: Sats 100%, low-flow O2; blood pressure 100/64; . CHEST: No wheezing. No crackles. CARDIAC: Normal S1, S2. No gallops. ABDOMEN: No masses. Blood sugar is 307, is probably from the . Continue diabetic medication. We will follow while in the MICU. Job ID: [id number]
[2019-12-15] MEDS: cefTRIAXone\\ROCEPHIN 2 GM in Sodium Chloride 0.9% 100 ML IVPB SCH (11:53)
[2019-12-15] MEDS: Azithromycin 500 MG in Sodium Chloride 0.9% 250 ML 250 ML IVPB SCH (11:55)
[2019-12-15] MEDS: Insulin Glargine 20 UNITS in Pre-Filled Syringe 1 EACH SC SCH ×2 (11:55→21:35)
[2019-12-15] MEDS: Sodium Chloride 0.9% 1,000 ML IV SCH (11:56)
[2019-12-15 14:47] LABS: Anion Gap 12 mmol/L (10-20); BUN (Urea Nitrogen) 8 mg/dL (7.0-18.7); Calc. Creatinine Clearance 101 mL/min (70-130); Calcium 8.2 mg/dL (7.8-10.44); Carbon Dioxide 28 mmol/L (22-29); Chloride 104 mmol/L (98-107); Estimated GFR-MDRD Greater than 90; Glucose 177 mg/dL (70-105); Potassium 3.5 mmol/L (3.5-5.1); Sodium 140 mmol/L (136-145)
--- NOTE | 2019-12-15 14:54 | PDOC.HOSPP ---
- Subjective Subjective: Seen and examined. Continues to clinically improved. Cough improving. Tolerating diet. No more G.I. distress, no diarrhea, nausea, or vomiting. On all accounts she is improving from covid infection. - Objective Vital Signs & Weight: Vital Signs (12 hours) Temp Pulse Resp BP Pulse Ox 12/15/19 14:30 98.5 F 85 16 94/69 100 12/15/19 12:00 98.6 F 12/15/19 08:00 98.8 F 100 12/15/19 04:00 98.6 F 18 100 Weight Admit Weight 91 lb 14.4 oz Weight 91 lb 14.4 oz Most Recent Monitor Data Heart Rate from ECG 69 NIBP 93/63 NIBP BP-Mean 73 Respiration from ECG 16 SpO2 100 I&O: 12/14/19 12/15/19 12/16/19 06:59 06:59 06:59 Intake Total 3995 3290 1560 Output Total 5300 4175 1800 Balance -1915 -885 -240 Result Diagrams: 12/13/19 12:18 12/15/19 14:17 Additional Labs: Accuchecks 12/13/19 12/13/19 12/13/19 23:14 22:19 21:26 POC Glucose 221 H 202 H 232 H 12/13/19 12/13/19 12/13/19 20:16 19:08 18:08 POC Glucose 231 H 253 H 229 H 12/13/19 12/13/19 12/13/19 17:24 16:06 15:11 POC Glucose 253 H 242 H 196 H 12/13/19 12/13/19 12/13/19 13:35 12:22 11:28 POC Glucose 147 H 114 H 125 H 12/13/19 12/13/19 12/13/19 10:33 09:43 08:17 POC Glucose 130 H 145 H 154 H 12/13/19 12/13/19 12/13/19 07:13 06:26 04:59 POC Glucose 223 H 211 H 238 H 12/13/19 12/13/19 12/13/19 03:45 02:24 00:43 POC Glucose 253 H 255 H 310 H 12/12/19 12/12/19 12/12/19 22:17 20:14 19:07 POC Glucose 298 H 240 H 205 H 12/12/19 12/12/19 12/12/19 18:18 17:16 16:25 POC Glucose 153 H 142 H 105 12/12/19 12/12/19 12/12/19 13:23 12:21 11:13 POC Glucose 111 H 128 H 138 H 12/12/19 12/12/19 09:38 08:24 POC Glucose 198 H 247 H Radiology Reviewed by me: Yes Hospitalist ROS - Review of Systems All other systems reviewed; all pertinent +/- noted in HPI/Subj - Medication Medications: Active Medications Generic Name Dose Route Start Last Admin Trade Name Freq PRN Reason Stop Dose Admin Acetaminophen 1,000 mg 12/13/19 04:08 12/13/19 12:02 Tylenol PO 1,000 mg Q6H PRN Administration .FEVER Benzonatate 100 mg 12/12/19 19:45 12/13/19 04:51 Tessalon PO 100 mg Q4H PRN Administration Cough Azithromycin 500 mg/ Sodium 250 mls @ 250 mls/hr 12/13/19 09:00 12/15/19 11: 55 Chloride IVPB 250 mls 0900 FERNANDO Administration Ceftriaxone Sodium 2 gm/ 100 mls @ 200 mls/hr 12/15/19 09:00 12/15/19 11:53 Sodium Chloride IVPB 100 mls 0900 FERNANDO Administration Insulin Glargine 20 units/ 0.2 mls @ 0 mls/hr 12/14/19 21:00 12/15/19 11:55 Miscellaneous Medication SC 0.2 mls BID FERNANDO Administration Sodium Chloride 1,000 mls @ 50 mls/hr 12/14/19 14:30 12/15/19 11:56 Normal Saline 0.9% IV Not Given .Q20H FERNANDO Insulin Human Lispro 0 units 12/14/19 14:23 12/15/19 06:46 Humalog SC 6 unit .AGGRESSIVE SLIDING PRN Administration Aggressive Correctional Scale Sodium Chloride 10 ml 12/14/19 09:00 12/15/19 11:56 Flush - Normal Saline IVF 10 ml Q12HR FERNANDO Administration - Exam General Appearance: NAD, awake alert Eye: anicteric sclera ENT: normocephalic atraumatic, moist mucosa Neck: supple, symmetric, no lymphadenopathy Heart: RRR, no murmur, no gallops, no rubs Respiratory: no rales, normal chest expansion, no tachypnea, rhonchi, wheezes ( improving) Gastrointestinal: soft, non-tender, non-distended, no guarding, no rigidity Extremities: no edema Skin: no lesions, no rashes Neurological: cranial nerve grossly intact, normal sensation to touch Musculoskeletal: generalized weakness Psychiatric: normal affect, normal behavior, A&O x 3 Hosp A/P (1) Pneumonia due to COVID-19 virus Code(s): U07.1 - COVID-19; J12.89 - OTHER VIRAL PNEUMONIA Status: Acute (2) Bilateral pneumonia Code(s): J18.9 - PNEUMONIA, UNSPECIFIED ORGANISM Status: Acute (3) DKA (diabetic ketoacidoses) Code(s): E11.10 - TYPE 2 DIABETES MELLITUS WITH KETOACIDOSIS WITHOUT COMA Status: Acute (4) Severe protein-calorie malnutrition Code(s): E43 - UNSPECIFIED SEVERE PROTEIN-CALORIE MALNUTRITION Status: Acute (5) Acidosis Code(s): E87.2 - ACIDOSIS Status: Acute (6) Fever Code(s): R50.9 - FEVER, UNSPECIFIED Status: Acute (7) Sepsis Code(s): A41.9 - SEPSIS, UNSPECIFIED ORGANISM Status: Acute - Plan Plan: intermediate medical care unit, stable for D/g to medical unit pulmonology/critical-care consultation, recommendations appreciated Continues to improve daily PT/OT to help mobilize the patient Stopped insulin drip, DKA resolved Long-acting insulin increased to home dose encourage oral intake replace electrolytes as needed Completed IV fluids pulmonary specific antibiotics steroids Covid positive Covid pneumonia versus bacterial pneumonia is likely the inciting event that started diabetic ketoacidosis continue other home medications as able Immodium for diarrhea PRN blood pressure control blood sugar control G.I. prophylaxis DVT prophylaxis
[2019-12-15] MEDS ORDERED: Potassium Chloride 20 MEQ TAB PO SCH (15:00)
[2019-12-16] MEDS: predniSONE 20 MG TAB PO SCH (08:11)
[2019-12-16] MEDS: cefTRIAXone\\ROCEPHIN 2 GM in Sodium Chloride 0.9% 100 ML IVPB SCH (08:11)
[2019-12-16] MEDS: Insulin Glargine 20 UNITS in Pre-Filled Syringe 1 EACH SC SCH (08:12)
[2019-12-16] MEDS: Azithromycin 500 MG in Sodium Chloride 0.9% 250 ML 250 ML IVPB SCH (09:48)
--- NOTE | 2019-12-16 11:17 | PRG ---
DATE OF SERVICE: 12/16/2019 SUBJECTIVE: This morning, she is doing better. OBJECTIVE: VITAL SIGNS: Temperature 99, pulse 90, respiratory rate 20, saturations 90% on room air, blood pressure 88/58. CHEST: No wheezing. No crackles. CARDIAC: Normal S1 and S2. No gallops. ABDOMEN: No masses. LABORATORY DATA: Lytes are normal. Blood sugar is much improved. She has Tejeda positive pneumonia. There is no big left shift today. Her last chest x-ray shows left-sided infiltrate. ASSESSMENT: Tejeda positive pneumonia, uncontrolled diabetes. PLAN: Taper the low-dose steroids. I will switch her to oral antibiotics. Hopefully, she can be discharged home in the next several days. Please call if needed. Job ID: [id number]
[2019-12-16] MEDS: HumaLOG 300 UNITS/3 ML VIAL SC PRN ×2 (12:45→17:25)
--- NOTE | 2019-12-16 18:22 | PDOC.HOSPP ---
- Subjective Subjective: Patient continues to improve daily. She is off oxygen. She is sitting up in the bed, her color is return, her appetite is good, she is ambulating to and from the restroom without difficulties. Her strength is coming back. Improving on all accounts. I have requested case management assistance to help with medications, [facility] also consulted. - Objective Vital Signs & Weight: Vital Signs (12 hours) Temp Pulse Resp BP Pulse Ox 12/16/19 12:45 86 16 91/60 100 12/16/19 08:17 99.5 F 92 20 88/58 L 99 12/16/19 08:00 99 Weight Admit Weight 91 lb 14.4 oz Weight 91 lb 14.4 oz Most Recent Monitor Data Heart Rate from ECG 69 NIBP 93/63 NIBP BP-Mean 73 Respiration from ECG 16 SpO2 100 I&O: 12/15/19 12/16/19 12/17/19 06:59 06:59 06:59 Intake Total 3290 1560 Output Total 4175 1800 Balance -885 -240 Result Diagrams: 12/13/19 12:18 12/15/19 14:17 Radiology Reviewed by me: Yes Hospitalist ROS - Review of Systems All other systems reviewed; all pertinent +/- noted in HPI/Subj - Medication Medications: Active Medications Generic Name Dose Route Start Last Admin Trade Name Freq PRN Reason Stop Dose Admin Acetaminophen 1,000 mg 12/13/19 04:08 12/13/19 12:02 Tylenol PO 1,000 mg Q6H PRN Administration .FEVER Benzonatate 100 mg 12/12/19 19:45 12/13/19 04:51 Tessalon PO 100 mg Q4H PRN Administration Cough Azithromycin 500 mg/ Sodium 250 mls @ 250 mls/hr 12/13/19 09:00 12/16/19 09: 48 Chloride IVPB 250 mls 0900 FERNANDO Administration Ceftriaxone Sodium 2 gm/ 100 mls @ 200 mls/hr 12/15/19 09:00 12/16/19 08:11 Sodium Chloride IVPB 100 mls 0900 FERNANDO Administration Insulin Glargine 20 units/ 0.2 mls @ 0 mls/hr 12/14/19 21:00 12/16/19 08:12 Miscellaneous Medication SC 0.2 mls BID FERNANDO Administration Insulin Human Lispro 0 units 12/14/19 14:23 12/16/19 17:25 Humalog SC 9 unit .AGGRESSIVE SLIDING PRN Administration Aggressive Correctional Scale Prednisone 10 mg 12/16/19 08:00 12/16/19 08:11 Prednisone PO 12/21/19 08:01 10 mg QAM-WM FERNANDO Administration Sodium Chloride 10 ml 12/14/19 09:00 12/16/19 08:12 Flush - Normal Saline IVF 10 ml Q12HR FERNANDO Administration - Exam General Appearance: NAD, awake alert Eye: anicteric sclera ENT: normocephalic atraumatic, moist mucosa Neck: supple, symmetric Heart: RRR, no murmur, no gallops, no rubs Respiratory: CTAB, no rales, no ronchi, normal chest expansion, wheezes Gastrointestinal: soft, non-tender, no guarding, no rigidity Extremities: no edema Skin: no lesions, no rashes Neurological: cranial nerve grossly intact, no focal deficits Musculoskeletal: diffuse muscle atrophy Psychiatric: normal affect, normal behavior, A&O x 3 Hosp A/P (1) Pneumonia due to COVID-19 virus Code(s): U07.1 - COVID-19; J12.89 - OTHER VIRAL PNEUMONIA Status: Acute (2) Bilateral pneumonia Code(s): J18.9 - PNEUMONIA, UNSPECIFIED ORGANISM Status: Acute (3) DKA (diabetic ketoacidoses) Code(s): E11.10 - TYPE 2 DIABETES MELLITUS WITH KETOACIDOSIS WITHOUT COMA Status: Acute (4) Severe protein-calorie malnutrition Code(s): E43 - UNSPECIFIED SEVERE PROTEIN-CALORIE MALNUTRITION Status: Acute (5) Acidosis Code(s): E87.2 - ACIDOSIS Status: Acute (6) Fever Code(s): R50.9 - FEVER, UNSPECIFIED Status: Acute (7) Sepsis Code(s): A41.9 - SEPSIS, UNSPECIFIED ORGANISM Status: Acute - Plan Plan: medical unit pulmonology/critical-care consultation, recommendations appreciated Change to Novolin - this may be covered by [facility] CM consult [facility] Continues to improve daily PT/OT to help mobilize the patient Stopped insulin drip, DKA resolved encourage oral intake replace electrolytes as needed Completed IV fluids pulmonary specific antibiotics steroids Covid positive Covid pneumonia versus bacterial pneumonia is likely the inciting event that started diabetic ketoacidosis continue other home medications as able Immodium for diarrhea PRN blood pressure control blood sugar control G.I. prophylaxis DVT prophylaxis
[2019-12-16] MEDS: NPH, Human Insulin Isophane 300 UNIT/3 ML VIAL SC SCH (20:21)
[2019-12-17] MEDS: cefTRIAXone\\ROCEPHIN 2 GM in Sodium Chloride 0.9% 100 ML IVPB SCH (08:51)
[2019-12-17] MEDS: predniSONE 20 MG TAB PO SCH (08:51)
[2019-12-17] MEDS: NPH, Human Insulin Isophane 300 UNIT/3 ML VIAL SC SCH (08:55)
[2019-12-17] MEDS: Azithromycin 500 MG in Sodium Chloride 0.9% 250 ML 250 ML IVPB SCH (11:03)
[2019-12-17] MEDS: HumaLOG 300 UNITS/3 ML VIAL SC PRN (12:34)
[2019-12-17 14:01] VITALS: BP 93/60; TEMP 98.6
--- NOTE | 2019-12-18 01:05 | DIS ---
DATE OF ADMISSION: 12/12/2019 DATE OF DISCHARGE: 12/17/2019 REASON FOR HOSPITALIZATION: Diabetic ketoacidosis and COVID pneumonia. PROCEDURES PERFORMED AND TREATMENTS RENDERED: Ms. Lester is a very pleasant 24-year-old female who presented to [facility] on 12/12/2019, please see full history and physical for details. I first evaluated the patient on the morning of 12/12/2019 in the emergency department, and she was profoundly sick. The patient was in diabetic ketoacidosis, and I noticed that she was having significant pulmonary problems, though she was not complaining of shortness of breath or cough. On pulmonary exam, though the patient had significant wheezing and rhonchorous breath sounds. I ordered a stat CT angiography of the chest, and this was found to have multifocal bilateral pneumonia consistent with COVID. The patient had a COVID test, which was positive. I placed the patient in isolation, started her on pulmonary specific antibiotics, oral steroids, and maximum medical therapy for COVID pneumonia. The patient was admitted to intermediate medical care floor for treatment for diabetic ketoacidosis. Pulmonology/Critical Care consultation was requested, please see full consultation notes and progress notes for details. With maximum medical therapy, the patient did improve dramatically over her hospitalization. The patient's diabetic ketoacidosis resolved, and she was titrated off the insulin drip. The patient on a combination of long and short-acting insulin. She had good control of her blood sugar throughout the hospitalization. The patient's COVID pneumonia did also improve daily. She was weaned off oxygen completely as of 12/16/2019, and this continued through 12/17/2019. The patient recommended safe for discharge with close followup in the outpatient setting with her primary care physician. Efforts were made with Case Management and [facility] to get the patient's medications delivered to bedside to ensure compliance and adequate treatment of both COVID pneumonia and insulin-dependent diabetes, type 1. CONDITION ON DISCHARGE: Stable. DISCHARGE MEDICATIONS: 1. NPH 15 units b.i.d. This dose may need to adjust after she finishes her steroids. 2. Dexamethasone 6 mg one tablet p.o. daily for an additional 6 days. 3. Cefpodoxime 200 mg one tablet p.o. b.i.d. for an additional 6 days, 12 tablets. 4. Tessalon Perles 100 mg one tablet p.o. t.i.d. p.r.n. cough. 5. Albuterol sulfate HFA inhaler two puffs p.o. q.4 hours p.r.n. shortness of breath. SPECIFIC INSTRUCTIONS FOR THE PATIENT/FAMILY: 1. The patient is recommended to take all medications as directed. 2. The patient is recommended to keep a blood sugar log with close management of her blood sugars over the next 2 weeks. I explicitly formed to her that while she is on steroids, she may be prone to hyperglycemia. I explicitly informed her that when she stops taking her steroids after a 6-day course, her blood sugars may decrease and she may need to decrease her insulin. I informed her of red flags to watch out for hypoglycemia, and I informed her that she will need to see her primary care physician in the next 5 to 7 days. 3. The patient is recommended to take all other medications as directed strictly. 4. The patient is recommended to follow up with primary care physician in the next 5 to 7 days. 5. The patient is recommended to follow up with her process assistant in the next 1 to 2 months. 6. The patient is recommended to return to acute care hospital immediately if signs or symptoms return, worsen, or any other new symptoms occur. Greater than 37 minutes spent coordinating care and discharge process for this patient. Job ID: [id number]
--- NOTE | 2019-12-18 21:33 | PQF ---
CLINICAL DOCUMENTATION CLARIFICATION FORM: Dear : Jos Domingo Date / Time: 12/18/19 645 Please exercise your independent, professional judgment in responding to the clarification form. Clinical indicators are provided on the bottom of this form for your review Diagnosis: Sepsis Present on Admission (POA): [ ] Yes [ ] No [ ] Unable to determine Physician Signature: Date/Time: For continuity of documentation, please document condition throughout progress notes and discharge summary. Thank You. To be completed by CDI/Coding staff for physician review: Present Clinical Indicators - Signs / Symptoms / Labs Results and Location in Medical Record [X] WBC 28.1, Plt count 344, Neutrophils 40, Band 34 Laboratory Hematology 12/11 [X] Covid 19 PCR - Detected Serology 12/11 [X] Blood culture-No growth in 5 days Microbiology 12/11 [X] BP 117/69, Pulse 138, Resp 28, Temp 97.7 Vital signs 12/11 [X] SIRS scoring: Yes pt did meet at least 2 criteria ED notes p2 12/11 [X] Pt noted to be afebrile but tachycardic H&P p1 12/11 Dr Staley [X] Acidosis H&P p47/18 Dr Staley [X] Mild OCTAVIO H&P p47/18 Dr Staley [X] Leukocytosis H&P p47/18 Dr Staley [X] Pneumonia due to Covid 19 virus HPN p4 12/12 Dr Domingo [X] Sepsis HPN p4 12/12 Dr Domingo Present Risk Factors Results and Location in Medical Record [X] DKA H&P p47/18 Dr Staley [X] Pneumonia due to Covid 19 virus HPN p4 12/12 Dr Domingo [X] Severe malnutrition HPN p4 12/12 Dr Domingo Present Treatments Results and Location in Medical Record [X] IV Rocephin 2 gm JUL 31 [X] IV Zithromax 500 mg JUL 31 [X] IVF NS 1L JUL 31 [X] Covid 19 PCR Serology 12/11 [X] Blood culture Microbiology 12/11 [X] Isolation Ordered Dr Staley 12/11 [X] Chest X-ray Imaging 12/11 Dr Donahue [X] Pulmonology consult Consult Rodney Cullen 12/12 CDS/Explosive Expert Signature: Divya Woods Phone #: [phone] Date/Time: 12/18/192131 This is a permanent part of the Medical Record [facility]
== END 2019-12-17 13:50 | disposition home or self-care (01) | DRG 177 ==
LOC: ERS 03:44 → ERHOLD 05:24 → IMCU/EMU 15:57 → T4-A 12-15 14:01
PROVIDERS: ADMIT Internal Medicine; ATTEND Internal Medicine
PROC: 8E0ZXY6 Isolation (ICD-10-PCS; principal; 2019-12-12)
DX: U07.1 COVID-19 (principal); A41.9 Sepsis, unspecified organism; E10.10 Type 1 diabetes mellitus with ketoacidosis without coma; J12.89 Other viral pneumonia; E43 Unspecified severe protein-calorie malnutrition; J96.90 Respiratory failure, unspecified, unspecified whether with hypoxia or hypercapnia; N17.9 Acute kidney failure, unspecified; E87.2 Acidosis; Z68.1 Body mass index [BMI] 19.9 or less, adult; E86.0 Dehydration; E87.8 Other disorders of electrolyte and fluid balance, not elsewhere classified; Z79.4 Long term (current) use of insulin
CPT/HCPCS: 36415; 36416; 71045; 71275; 72040; 80048; 80053; 81003; 81015; 82010; 82805; 83605; 83735; 84100; 84703; 85025; 87040; 87635; 96361; 96365; 96366; 96367; 96375; 99292; J0456; J0696; J1815; J2270; J2405; J2920; J3475; J3480; J3490; J7050; J7512; Q9967; U0003

== ENCOUNTER 2020-09-07 17:08 | Inpatient (IN) | payer SELFPAY ==
[2020-09-07 17:45] LABS: Bilirubin Negative (Negative); Blood, Urine Trace (Negative); Clarity Clear (Clear); Glucose, Urine (Dipstick) 500 mg/dL (Negative); Ketone, Urine > or equal to 80 mg/dL (Negative); Leukocyte Trace (Negative); Nitrite Negative (Negative); Protein, Urine (Dipstick) Trace mg/dL (Neg-Trace); Specific Gravity, Urine 1.025 (1.005-1.030); Urobilinogen 0.2 mg/dL (Less than 2); pH, Urine 5.5 (5.0-9.0)
[2020-09-07 17:46] LABS: Bacteria/HPF Rare-Few HPF (None Seen)
[2020-09-07 18:13] LABS: Hemoglobin 13.4 g/dL (12.0-16.0); Mean Corpuscular HGB CONC 32.9 g/dL (32.0-36.0); Mean Corpuscular Hemoglobin 29.2 pg (27.0-31.0); Mean Corpuscular Volume 88.6 fL (78.0-98.0); Mean Platelet Volume 7.8 fL (7.4-10.4); Platelet Count 322 thou/uL (130-400); RBC Distribution Width 11.1 % (11.5-14.5); White Blood Cell (WBC) Count 22.2 thou/uL (4.8-10.8)
[2020-09-07] MEDS ORDERED: Ondansetron PF 4 MG/2 ML Vial ONE (18:13)
[2020-09-07 18:28] LABS: ALT (SGPT) 15 U/L (8-55); AST (SGOT) 23 U/L (5-34); Albumin 3.6 g/dL (3.5-5.0); Alkaline Phosphatase 191 U/L (40-110); Anion Gap 22 mmol/L (10-20); BUN (Urea Nitrogen) 15 mg/dL (7.0-18.7); Bilirubin, Total 0.2 mg/dL (0.2-1.2); Calc. Creatinine Clearance 0 mL/min (70-130); Calcium 7.4 mg/dL (7.8-10.44); Chloride 110 mmol/L (98-107); Globulin 3.2 g/dL (2.4-3.5); Glucose 345 mg/dL (70-105); Potassium 3.9 mmol/L (3.5-5.1); Protein, Total 6.8 g/dL (6.0-8.3); Sodium 136 mmol/L (136-145)
[2020-09-07 18:38] LABS: Carbon Dioxide 8 mmol/L (22-29)
[2020-09-07 18:39] LABS: Band 44 % (5-11); Lymphocytes 4 % (21-51); MDiff Complete? YES; Metamyelocyte 2 % (0-0); Monocytes 5 % (0-10); Neutrophil 40 % (42-75); Platelet Morphology Comment Appears Adequate; Polychromasia SLIGHT = 2-3 cells (100X) (0-2/hpf); Reactive Lymphocytes 4 % (0-10); Reflex for Review?? YES
[2020-09-07 18:40] LABS: Analyzer IN Cardio ER; Base Excess -19.5 mEq/L (-2.0 to +3.0); Calcium, Ionized (venous) 1.09 mmol/L (1.16-1.32); Chloride (VBG) 112 mmol/L (98-106); Potassium (VBG) 4.06 mmol/L (3.70-5.30); Sodium 137.2 mmol/L (133-146)
[2020-09-07] MEDS ORDERED: NS 0.9% w/ 20 MEQ KCL 1,000 ML ONE (18:41)
[2020-09-07 18:42] LABS: Actual Bicarbonate (HCO3v) 9 mEq/L (22-28)
[2020-09-07] MEDS ORDERED: D5 1/2 NS w/20 mEq KCL 1,000 ML ONE (19:53)
[2020-09-07 20:02] LABS: SARS-CoV-2 NAA Rapid Test Not Detected (NotDetected)
[2020-09-07] MEDS ORDERED: D5 1/2 NS w/20 mEq KCL 1,000 ML IV SCH (20:45)
[2020-09-07] MEDS ORDERED: Dextrose 50% Abboject 50 ML SYRINGE SLOW IVP PRN (21:07)
[2020-09-07] MEDS ORDERED: NS 0.9% w/ 20 MEQ KCL 1,000 ML IV PRN ×2 (21:10)
[2020-09-07] MEDS ORDERED: HYDROcodone/Acetaminophen 5/325 mg Tablet PO PRN (21:10)
[2020-09-07] MEDS ORDERED: Ondansetron ODT 4 MG TAB PO PRN (21:10)
[2020-09-07] MEDS ORDERED: Acetaminophen 325 MG TAB PO PRN (21:10)
[2020-09-07] MEDS ORDERED: Electrolyte Replacement Protocol 1 EACH IVPB ONE (21:10)
[2020-09-07] MEDS ORDERED: Ondansetron PF 4 MG/2 ML Vial IVP PRN (21:10)
[2020-09-07] MEDS ORDERED: Dextrose 5 %-0.45 % NaCl 1,000 ML IV PRN ×2 (21:10→21:15)
[2020-09-07] MEDS ORDERED: Sodium Chloride 0.9% 1,000 ML IV PRN ×8 (21:10→21:15)
[2020-09-07] MEDS ORDERED: Dextrose 5% in Water 1,000 ML IV PRN (21:15)
[2020-09-07] MEDS ORDERED: Electrolyte Replacement Protocol FS PRN (21:15)
[2020-09-07] MEDS ORDERED: HUMULIN R 100 UNITS in Sodium Chloride 0.9% 100 ML IVPB SCH ×2 (21:15)
[2020-09-07] MEDS ORDERED: D5 1/2 NS w/20 mEq KCL 1,000 ML IV PRN (21:15)
[2020-09-07] MEDS ORDERED: NS 0.9% w/ 20 MEQ KCL 1,000 ML/1,000 ML BAG IV PRN ×2 (21:15)
[2020-09-07 21:36] VITALS: BMI 18.1
[2020-09-07] MEDS: Piperacillin/Tazobactam 4.5 GM in Sodium Chloride 0.9% 100 ML IVPB SCH (21:48)
[2020-09-07 22:11] LABS: Anion Gap 14 mmol/L (10-20); BUN (Urea Nitrogen) 13 mg/dL (7.0-18.7); Calc. Creatinine Clearance 82 mL/min (70-130); Calcium 7.2 mg/dL (7.8-10.44); Carbon Dioxide 13 mmol/L (22-29); Chloride 114 mmol/L (98-107); Glucose 243 mg/dL (70-105); Potassium 4.1 mmol/L (3.5-5.1); Sodium 137 mmol/L (136-145)
[2020-09-07] MEDS ORDERED: Sodium Chloride 0.9% 500 ML IV PRN ×2 (22:34→22:40)
[2020-09-07] MEDS: D5 1/2 NS w/20 mEq KCL 1,000 ML IV PRN (23:00)
[2020-09-08 02:07] LABS: Anion Gap 9 mmol/L (10-20); BUN (Urea Nitrogen) 12 mg/dL (7.0-18.7); Calc. Creatinine Clearance 92 mL/min (70-130); Calcium 7.2 mg/dL (7.8-10.44); Carbon Dioxide 14 mmol/L (22-29); Chloride 114 mmol/L (98-107); Glucose 229 mg/dL (70-105); Potassium 3.4 mmol/L (3.5-5.1); Sodium 134 mmol/L (136-145)
[2020-09-08] MEDS ORDERED: VANCOMYCIN 1.25 GM/250 ML BAG IVPB SCH (02:30)
[2020-09-08] MEDS ORDERED: Sodium Chloride 0.9% 500 ML IV SCH (03:00)
[2020-09-08] MEDS ORDERED: Vancomycin HCl 1.25 GM in Sodium Chloride 0.9% 250 ML 250 ML IVPB SCH (03:30)
[2020-09-08 03:58] LABS: Anion Gap 9 mmol/L (10-20); BUN (Urea Nitrogen) 11 mg/dL (7.0-18.7); Calc. Creatinine Clearance 99 mL/min (70-130); Calcium 7.1 mg/dL (7.8-10.44); Carbon Dioxide 14 mmol/L (22-29); Chloride 114 mmol/L (98-107); Glucose 187 mg/dL (70-105); Potassium 3.2 mmol/L (3.5-5.1); Sodium 134 mmol/L (136-145)
[2020-09-08] MEDS: D5 1/2 NS w/20 mEq KCL 1,000 ML IV PRN ×2 (04:06→08:14)
[2020-09-08 04:49] LABS: #Eosinphils 0.2 thou/uL (0.0-0.7); #Lymphocytes 2.4 thou/uL (1.20-3.40); #Neutrophils 7.8 thou/uL (1.40-6.50); %Basophils 0.2 % (0.0-1.0); %Eosinophils 1.4 % (0.0-10.0); %Lymphocytes 20.8 % (21.0-51.0); %Monocytes 8.9 % (0.0-10.0); %Neutrophils 68.7 % (42.0-75.0); Hemoglobin 10.4 g/dL (12.0-16.0); Mean Corpuscular HGB CONC 32.6 g/dL (32.0-36.0); Mean Corpuscular Hemoglobin 29.1 pg (27.0-31.0); Platelet Count 261 thou/uL (130-400); Red Blood Cell (RBC) Count 3.59 mill/uL (4.20-5.40); White Blood Cell (WBC) Count 11.4 thou/uL (4.8-10.8)
[2020-09-08] MEDS: Piperacillin/Tazobactam 4.5 GM in Sodium Chloride 0.9% 100 ML IVPB SCH ×3 (05:22→21:36)
[2020-09-08] MEDS ORDERED: Potassium Chloride 40 MEQ in Sodium Chloride 0.9% 250 ML 250 ML IVPB SCH (06:15)
[2020-09-08 06:54] LABS: Anion Gap 7 mmol/L (10-20); BUN (Urea Nitrogen) 10 mg/dL (7.0-18.7); Calc. Creatinine Clearance 110 mL/min (70-130); Calcium 7.2 mg/dL (7.8-10.44); Carbon Dioxide 15 mmol/L (22-29); Chloride 116 mmol/L (98-107); Glucose 139 mg/dL (70-105); Potassium 3.2 mmol/L (3.5-5.1); Sodium 135 mmol/L (136-145)
[2020-09-08] MEDS ORDERED: Dextrose 5% in Water 1,000 ML IV PRN (08:19)
[2020-09-08] MEDS ORDERED: Dextrose 50% Abboject 50 ML SYRINGE SLOW IVP PRN (08:19)
[2020-09-08] MEDS: Enoxaparin Sodium 40 MG/0.4 ML SYRINGE SC SCH (09:04)
[2020-09-08 09:27] LABS: Anion Gap 7 mmol/L (10-20); BUN (Urea Nitrogen) 9 mg/dL (7.0-18.7); Calc. Creatinine Clearance 110 mL/min (70-130); Calcium 7.3 mg/dL (7.8-10.44); Carbon Dioxide 17 mmol/L (22-29); Chloride 116 mmol/L (98-107); Glucose 162 mg/dL (70-105); Potassium 3.9 mmol/L (3.5-5.1); Sodium 136 mmol/L (136-145)
[2020-09-08] MEDS: Sodium Bicarbonate 150 MEQ in Dextrose 5% in Water 1,000 ML IV SCH ×2 (10:15→23:27)
[2020-09-08] MEDS ORDERED: Vancomycin HCl 500 MG in Sodium Chloride 0.9% 100 ML IVPB SCH (12:00)
[2020-09-08 13:15] LABS: Anion Gap 9 mmol/L (10-20); BUN (Urea Nitrogen) 8 mg/dL (7.0-18.7); Calc. Creatinine Clearance 106 mL/min (70-130); Calcium 7.4 mg/dL (7.8-10.44); Carbon Dioxide 17 mmol/L (22-29); Chloride 112 mmol/L (98-107); Glucose 274 mg/dL (70-105); Potassium 3.8 mmol/L (3.5-5.1); Sodium 134 mmol/L (136-145)
[2020-09-08] MEDS: Insulin Regular 300 UNITS/3 ML VIAL SC PRN ×3 (13:42→21:36)
[2020-09-08] MEDS ORDERED: Lantus 1000 UNITS/10 ML VIAL SC SCH ×2 (17:00)
[2020-09-08 17:38] LABS: Anion Gap 9 mmol/L (10-20); BUN (Urea Nitrogen) 7 mg/dL (7.0-18.7); Calc. Creatinine Clearance 116 mL/min (70-130); Calcium 7.4 mg/dL (7.8-10.44); Carbon Dioxide 18 mmol/L (22-29); Chloride 111 mmol/L (98-107); Glucose 251 mg/dL (70-105); Potassium 3.3 mmol/L (3.5-5.1); Sodium 135 mmol/L (136-145)
[2020-09-08 21:20] LABS: Anion Gap 10 mmol/L (10-20); BUN (Urea Nitrogen) 6 mg/dL (7.0-18.7); Calc. Creatinine Clearance 118 mL/min (70-130); Calcium 7.5 mg/dL (7.8-10.44); Carbon Dioxide 21 mmol/L (22-29); Chloride 109 mmol/L (98-107); Glucose 334 mg/dL (70-105); Potassium 3.7 mmol/L (3.5-5.1); Sodium 136 mmol/L (136-145)
[2020-09-09 01:40] LABS: Anion Gap 9 mmol/L (10-20); BUN (Urea Nitrogen) 6 mg/dL (7.0-18.7); Calc. Creatinine Clearance 116 mL/min (70-130); Calcium 7.5 mg/dL (7.8-10.44); Carbon Dioxide 22 mmol/L (22-29); Chloride 109 mmol/L (98-107); Glucose 299 mg/dL (70-105); Potassium 3.3 mmol/L (3.5-5.1); Sodium 137 mmol/L (136-145)
[2020-09-09 04:55] LABS: Anion Gap 10 mmol/L (10-20); BUN (Urea Nitrogen) 7 mg/dL (7.0-18.7); Calc. Creatinine Clearance 118 mL/min (70-130); Calcium 7.5 mg/dL (7.8-10.44); Carbon Dioxide 24 mmol/L (22-29); Chloride 107 mmol/L (98-107); Glucose 321 mg/dL (70-105); Potassium 3.6 mmol/L (3.5-5.1); Sodium 137 mmol/L (136-145)
[2020-09-09] MEDS: Piperacillin/Tazobactam 4.5 GM in Sodium Chloride 0.9% 100 ML IVPB SCH ×2 (05:08→15:54)
[2020-09-09] MEDS: Insulin Regular 300 UNITS/3 ML VIAL SC PRN (05:37)
[2020-09-09] MEDS ORDERED: Dextrose 50% Abboject 50 ML SYRINGE SLOW IVP PRN (08:15)
[2020-09-09] MEDS ORDERED: Dextrose 5% in Water 1,000 ML IV PRN (08:15)
[2020-09-09] MEDS ORDERED: Insulin Regular 300 UNITS/3 ML VIAL SC PRN (08:15)
[2020-09-09] MEDS ORDERED: Lantus 1000 UNITS/10 ML VIAL SC SCH ×2 (09:00→21:00)
[2020-09-09] MEDS: Enoxaparin Sodium 40 MG/0.4 ML SYRINGE SC SCH (09:07)
[2020-09-09 13:53] VITALS: TEMP 98.4
== END 2020-09-09 17:05 | disposition home or self-care (01) | DRG 637 ==
LOC: ERS 17:08 → IMCU/EMU 18:23
PROVIDERS: ADMIT Student in an Organized Health Care Education/Training Program; ATTEND Hospitalist
DX: E10.10 Type 1 diabetes mellitus with ketoacidosis without coma (principal); E43 Unspecified severe protein-calorie malnutrition; Z68.1 Body mass index [BMI] 19.9 or less, adult; R65.10 Systemic inflammatory response syndrome (SIRS) of non-infectious origin without acute organ dysfunction; Z20.822 Contact with and (suspected) exposure to COVID-19; Z79.4 Long term (current) use of insulin; Z79.51 Long term (current) use of inhaled steroids; Z79.899 Other long term (current) drug therapy
CPT/HCPCS: 36415; 36416; 71045; 80048; 81003; 81015; 82010; 82805; 83605; 85025; 85060; 96365; 96366; 96375; J1650; J1815; J2405; J2543; J3370; J3480; J3490; J7030; J7050; J7070; Q0162; U0002

== ENCOUNTER 2020-10-22 19:16 | Inpatient (IN) | payer SELFPAY ==
[2020-10-22] MEDS ORDERED: INSULIN REGULAR IN 0.9 % NACL 100 UNIT/100 ML BAG ONE (20:42)
[2020-10-22] MEDS ORDERED: NS 0.9% w/ 20 MEQ KCL 1,000 ML IV SCH (21:00)
[2020-10-22 21:41] LABS: BUN (Urea Nitrogen) 10 mg/dL (7.0-18.7); Calc. Creatinine Clearance 0 mL/min (70-130); Calcium 7.5 mg/dL (7.8-10.44); Chloride 116 mmol/L (98-107); Glucose 231 mg/dL (70-105); Potassium 3.7 mmol/L (3.5-5.1); Sodium 137 mmol/L (136-145)
[2020-10-22 21:47] LABS: Carbon Dioxide Less than 8 mmol/L (22-29)
[2020-10-22] MEDS ORDERED: Ondansetron ODT 4 MG TAB SL PRN (23:00)
[2020-10-22] MEDS ORDERED: Ondansetron PF 4 MG/2 ML Vial IVP PRN ×2 (23:00→23:57)
[2020-10-22] MEDS ORDERED: Acetaminophen 325 MG TAB PO PRN ×2 (23:00→23:57)
[2020-10-22] MEDS ORDERED: Dextrose 50% Abboject 50 ML SYRINGE ONE (23:10)
[2020-10-22] MEDS: D5 1/2 NS w/20 mEq KCL 1,000 ML IV PRN (23:10)
[2020-10-22 23:37] LABS: SARS-CoV-2 NAA Rapid Test Not Detected (NotDetected)
[2020-10-22] MEDS ORDERED: NS 0.9% w/ 20 MEQ KCL 1,000 ML IV PRN ×2 (23:45)
[2020-10-22] MEDS ORDERED: Sodium Chloride 0.9% 1,000 ML IV PRN ×4 (23:45)
[2020-10-22] MEDS ORDERED: Electrolyte Replacement Protocol 1 EACH IVPB PRN (23:45)
[2020-10-22] MEDS ORDERED: Dextrose 5 %-0.45 % NaCl 1,000 ML IV PRN (23:45)
[2020-10-22] MEDS ORDERED: HUMULIN R 100 UNITS in Sodium Chloride 0.9% 100 ML IVPB SCH (23:45)
[2020-10-22] MEDS ORDERED: Vancomycin 1 GM in Premix Bag 1 BAG IVPB SCH (23:45)
[2020-10-23 00:30] LABS: Lactic Acid 1.1 mmol/L (0.5-2.2)
[2020-10-23 00:33] LABS: Anion Gap 10 mmol/L (10-20); BUN (Urea Nitrogen) 10 mg/dL (7.0-18.7); Calc. Creatinine Clearance 79 mL/min (70-130); Calcium 7.4 mg/dL (7.8-10.44); Carbon Dioxide 10 mmol/L (22-29); Chloride 119 mmol/L (98-107); Glucose 161 mg/dL (70-105); Potassium 3.8 mmol/L (3.5-5.1); Sodium 135 mmol/L (136-145)
[2020-10-23] MEDS: Cefepime 1 GM in Sodium Chloride 0.9% 100 ML IVPB SCH ×2 (00:57→13:10)
[2020-10-23] MEDS: D5 1/2 NS w/20 mEq KCL 1,000 ML IV PRN ×3 (01:00→14:49)
[2020-10-23 03:52] LABS: #Basophils 0.1 thou/uL (0.0-0.2); #Eosinphils 0.1 thou/uL (0.0-0.7); #Lymphocytes 3.4 thou/uL (1.20-3.40); #Monocytes 1.5 thou/uL (0.11-0.59); #Neutrophils 10.9 thou/uL (1.40-6.50); %Basophils 0.3 % (0.0-1.0); %Eosinophils 0.4 % (0.0-10.0); %Lymphocytes 21.6 % (21.0-51.0); %Monocytes 9.3 % (0.0-10.0); %Neutrophils 68.4 % (42.0-75.0); Mean Corpuscular HGB CONC 34.8 g/dL (32.0-36.0); Mean Corpuscular Hemoglobin 29.8 pg (27.0-31.0); Mean Corpuscular Volume 85.7 fL (78.0-98.0); Mean Platelet Volume 7.6 fL (7.4-10.4); Platelet Count 263 thou/uL (130-400); RBC Distribution Width 11.4 % (11.5-14.5); Red Blood Cell (RBC) Count 4.02 mill/uL (4.20-5.40); White Blood Cell (WBC) Count 15.9 thou/uL (4.8-10.8)
[2020-10-23 04:14] LABS: Anion Gap 7 mmol/L (10-20); BUN (Urea Nitrogen) 9 mg/dL (7.0-18.7); Calc. Creatinine Clearance 85 mL/min (70-130); Calcium 7.3 mg/dL (7.8-10.44); Carbon Dioxide 13 mmol/L (22-29); Chloride 116 mmol/L (98-107); Glucose 237 mg/dL (70-105); Potassium 3.2 mmol/L (3.5-5.1); Sodium 133 mmol/L (136-145)
[2020-10-23] MEDS ORDERED: Magnesium 2 GM/50 ML 2 GM in Premix Bag 1 BAG IVPB SCH (07:15)
[2020-10-23 07:50] LABS: Anion Gap 5 mmol/L (10-20); BUN (Urea Nitrogen) 6 mg/dL (7.0-18.7); Calc. Creatinine Clearance 90 mL/min (70-130); Calcium 7.7 mg/dL (7.8-10.44); Carbon Dioxide 15 mmol/L (22-29); Chloride 118 mmol/L (98-107); Glucose 195 mg/dL (70-105); Potassium 3.1 mmol/L (3.5-5.1); Sodium 135 mmol/L (136-145)
[2020-10-23 07:54] LABS: Anion Gap 9 mmol/L (10-20); BUN (Urea Nitrogen) 7 mg/dL (7.0-18.7); Calc. Creatinine Clearance 91 mL/min (70-130); Calcium 7.5 mg/dL (7.8-10.44); Carbon Dioxide 12 mmol/L (22-29); Chloride 118 mmol/L (98-107); Glucose 191 mg/dL (70-105); Magnesium 1.3 mg/dL (1.6-2.6); Potassium 3.1 mmol/L (3.5-5.1); Sodium 136 mmol/L (136-145)
[2020-10-23] MEDS ORDERED: Potassium Chloride 20 MEQ in Premix Bag 1 BAG IVPB SCH (08:00)
[2020-10-23] MEDS ORDERED: MAGNESIUM SULFATE IVPB SCH (09:15)
[2020-10-23] MEDS ORDERED: [UNRECOGNIZED DRUG - OTHER] IVPB SCH (09:15)
[2020-10-23] MEDS ORDERED: POTASSIUM PHOSPHATE IVPB SCH (09:15)
[2020-10-23] MEDS ORDERED: Potassium Chloride 10 MEQ in Premix Bag 1 BAG IVPB SCH (09:15)
[2020-10-23] MEDS: Famotidine/PF 20 mg/2ml Vial SLOW IVP SCH ×2 (10:08→20:27)
[2020-10-23] MEDS: Vancomycin HCl 750 MG in Sodium Chloride 0.9% 250 ML 250 ML IVPB SCH ×2 (13:10→23:04)
[2020-10-23 14:12] LABS: #Basophils 0.1 thou/uL (0.0-0.2); #Eosinphils 0.1 thou/uL (0.0-0.7); #Lymphocytes 2.4 thou/uL (1.20-3.40); #Monocytes 1.1 thou/uL (0.11-0.59); #Neutrophils 8.6 thou/uL (1.40-6.50); %Basophils 0.5 % (0.0-1.0); %Eosinophils 0.7 % (0.0-10.0); %Lymphocytes 19.7 % (21.0-51.0); %Monocytes 9.3 % (0.0-10.0); %Neutrophils 69.9 % (42.0-75.0); Hemoglobin 12.6 g/dL (12.0-16.0); Mean Corpuscular HGB CONC 33.8 g/dL (32.0-36.0); Mean Corpuscular Hemoglobin 29.1 pg (27.0-31.0); Mean Platelet Volume 7.6 fL (7.4-10.4); Platelet Count 250 thou/uL (130-400); RBC Distribution Width 11.7 % (11.5-14.5); Red Blood Cell (RBC) Count 4.35 mill/uL (4.20-5.40); White Blood Cell (WBC) Count 12.3 thou/uL (4.8-10.8)
[2020-10-23 14:34] LABS: Lactic Acid 1.4 mmol/L (0.5-2.2)
[2020-10-23 14:41] LABS: Anion Gap 8 mmol/L (10-20); BUN (Urea Nitrogen) 5 mg/dL (7.0-18.7); Calc. Creatinine Clearance 110 mL/min (70-130); Calcium 7.6 mg/dL (7.8-10.44); Carbon Dioxide 16 mmol/L (22-29); Chloride 117 mmol/L (98-107); Glucose 155 mg/dL (70-105); Magnesium 2.2 mg/dL (1.6-2.6); Phosphorus 2.2 mg/dL (2.3-4.7); Potassium 3.8 mmol/L (3.5-5.1); Sodium 137 mmol/L (136-145)
[2020-10-23] MEDS ORDERED: Dextrose 5% in Water 1,000 ML IV PRN (16:39)
[2020-10-23] MEDS ORDERED: Dextrose 50% Abboject 50 ML SYRINGE SLOW IVP PRN (16:39)
[2020-10-23] MEDS ORDERED: Lantus 1000 UNITS/10 ML VIAL SC SCH (16:45)
[2020-10-23] MEDS ORDERED: Sodium Phosphate 30 MMOL in Sodium Chloride 0.9% 250 ML 250 ML IVPB SCH (18:00)
[2020-10-24] MEDS: Cefepime 1 GM in Sodium Chloride 0.9% 100 ML IVPB SCH ×2 (00:07→13:18)
[2020-10-24 03:41] LABS: #Eosinphils 0.1 thou/uL (0.0-0.7); #Lymphocytes 2.9 thou/uL (1.20-3.40); #Monocytes 0.6 thou/uL (0.11-0.59); #Neutrophils 3.8 thou/uL (1.40-6.50); %Basophils 0.5 % (0.0-1.0); %Eosinophils 0.9 % (0.0-10.0); %Lymphocytes 39.6 % (21.0-51.0); %Monocytes 7.6 % (0.0-10.0); %Neutrophils 51.4 % (42.0-75.0); Hemoglobin 11.3 g/dL (12.0-16.0); Mean Corpuscular HGB CONC 35.5 g/dL (32.0-36.0); Mean Corpuscular Hemoglobin 30.4 pg (27.0-31.0); Mean Corpuscular Volume 85.6 fL (78.0-98.0); Platelet Count 225 thou/uL (130-400); RBC Distribution Width 11.8 % (11.5-14.5); Red Blood Cell (RBC) Count 3.72 mill/uL (4.20-5.40); White Blood Cell (WBC) Count 7.3 thou/uL (4.8-10.8)
[2020-10-24 03:59] LABS: Anion Gap 8 mmol/L (10-20); BUN (Urea Nitrogen) 4 mg/dL (7.0-18.7); Calc. Creatinine Clearance 112 mL/min (70-130); Calcium 7.6 mg/dL (7.8-10.44); Carbon Dioxide 19 mmol/L (22-29); Chloride 115 mmol/L (98-107); Glucose 247 mg/dL (70-105); Potassium 3.3 mmol/L (3.5-5.1); Sodium 139 mmol/L (136-145)
[2020-10-24] MEDS ORDERED: Potassium Chloride 20 MEQ TAB PO SCH (05:45)
[2020-10-24] MEDS: HumaLOG 300 UNITS/3 ML VIAL SC PRN ×3 (05:53→18:19)
[2020-10-24 09:17] LABS: Magnesium 1.8 mg/dL (1.6-2.6); Phosphorus 2.6 mg/dL (2.3-4.7)
[2020-10-24 09:32] LABS: Vancomycin, Trough 3.3 ug/mL
[2020-10-24] MEDS: Famotidine/PF 20 mg/2ml Vial SLOW IVP SCH ×2 (09:38→21:58)
[2020-10-24] MEDS: Enoxaparin Sodium 40 MG/0.4 ML SYRINGE SC SCH (09:38)
[2020-10-24] MEDS ORDERED: Magnesium 2 GM/50 ML 2 GM in Premix Bag 1 BAG IVPB SCH (09:45)
[2020-10-24 09:52] VITALS: BMI 18.3
[2020-10-24] MEDS ORDERED: Vancomycin 1 GM in Premix Bag 1 BAG IVPB SCH (12:00)
[2020-10-24] MEDS ORDERED: Lantus 1000 UNITS/10 ML VIAL SC SCH (13:00)
[2020-10-24] MEDS: Lantus 1000 UNITS/10 ML VIAL SC SCH (21:59)
[2020-10-25] MEDS: HumaLOG 300 UNITS/3 ML VIAL SC PRN ×2 (06:01→11:52)
[2020-10-25 06:30] LABS: #Lymphocytes 2.3 thou/uL (1.20-3.40); #Monocytes 0.4 thou/uL (0.11-0.59); #Neutrophils 1.9 thou/uL (1.40-6.50); %Eosinophils 0.8 % (0.0-10.0); %Neutrophils 40.3 % (42.0-75.0); Hemoglobin 11.9 g/dL (12.0-16.0); Mean Corpuscular HGB CONC 34.4 g/dL (32.0-36.0); Mean Corpuscular Hemoglobin 29.5 pg (27.0-31.0); Mean Corpuscular Volume 85.7 fL (78.0-98.0); Mean Platelet Volume 8.4 fL (7.4-10.4); Platelet Count 213 thou/uL (130-400); RBC Distribution Width 11.8 % (11.5-14.5); Red Blood Cell (RBC) Count 4.04 mill/uL (4.20-5.40); White Blood Cell (WBC) Count 4.8 thou/uL (4.8-10.8)
[2020-10-25 06:48] LABS: Anion Gap 9 mmol/L (10-20); BUN (Urea Nitrogen) 10 mg/dL (7.0-18.7); Calc. Creatinine Clearance 107 mL/min (70-130); Calcium 8.3 mg/dL (7.8-10.44); Carbon Dioxide 27 mmol/L (22-29); Chloride 109 mmol/L (98-107); Glucose 308 mg/dL (70-105); Potassium 3.8 mmol/L (3.5-5.1); Sodium 141 mmol/L (136-145)
[2020-10-25 07:52] VITALS: BP 111/79; TEMP 98.2
[2020-10-25] MEDS: Famotidine/PF 20 mg/2ml Vial SLOW IVP SCH (07:59)
[2020-10-25] MEDS: Lantus 1000 UNITS/10 ML VIAL SC SCH (07:59)
[2020-10-25] MEDS: Enoxaparin Sodium 40 MG/0.4 ML SYRINGE SC SCH (08:06)
[2020-10-25] MEDS ORDERED: Magnesium 2 GM/50 ML 2 GM in Premix Bag 1 BAG IVPB SCH (10:30)
== END 2020-10-25 12:15 | disposition home or self-care (01) | DRG 682 ==
LOC: ERS 19:16 → IMCU/EMU 21:07 → T4-B 10-24 14:00
PROVIDERS: ADMIT Internal Medicine; ATTEND Internal Medicine
DX: N17.9 Acute kidney failure, unspecified (principal); E10.10 Type 1 diabetes mellitus with ketoacidosis without coma; E87.1 Hypo-osmolality and hyponatremia; Z20.822 Contact with and (suspected) exposure to COVID-19; E83.42 Hypomagnesemia; E87.6 Hypokalemia; E83.39 Other disorders of phosphorus metabolism; E86.0 Dehydration; Z79.4 Long term (current) use of insulin
CPT/HCPCS: 36415; 36416; 80048; 80202; 82010; 83605; 83735; 84100; 85025; 87040; 87086; 96365; 96366; 96368; J0692; J1815; J2405; J3370; J3475; J3480; J3490; J7050; S0028; U0002; U0005

== ENCOUNTER 2021-04-27 12:18 | Inpatient (IN) | payer SELFPAY ==
[2021-04-27 13:27] LABS: Hemoglobin 16.3 g/dL (12.0-16.0); Mean Corpuscular HGB CONC 33.5 g/dL (32.0-36.0); Mean Corpuscular Hemoglobin 29.3 pg (27.0-31.0); Mean Corpuscular Volume 87.6 fL (78.0-98.0); Mean Platelet Volume 7.7 fL (7.4-10.4); Platelet Count 325 thou/uL (130-400); RBC Distribution Width 11.2 % (11.5-14.5); Red Blood Cell (RBC) Count 5.56 mill/uL (4.20-5.40); White Blood Cell (WBC) Count 23.2 thou/uL (4.8-10.8)
[2021-04-27 13:33] LABS: ALT (SGPT) 11 U/L (8-55); AST (SGOT) 10 U/L (5-34); Albumin 4.4 g/dL (3.5-5.0); Alkaline Phosphatase 126 U/L (40-110); BUN (Urea Nitrogen) 15 mg/dL (7.0-18.7); Bilirubin, Total 0.5 mg/dL (0.2-1.2); Calc. Creatinine Clearance 0 mL/min (70-130); Calcium 8.7 mg/dL (7.8-10.44); Chloride 105 mmol/L (98-107); Globulin 4.1 g/dL (2.4-3.5); Glucose 508 mg/dL (70-105); Magnesium 1.6 mg/dL (1.6-2.6); Phosphorus 3.6 mg/dL (2.3-4.7); Potassium 4.9 mmol/L (3.5-5.1); Protein, Total 8.5 g/dL (6.0-8.3); Sodium 132 mmol/L (136-145)
[2021-04-27 13:34] LABS: Base Excess -25.6 mEq/L (-2.0 to +3.0); Calcium, Ionized (venous) 1.28 mmol/L (1.16-1.32); Chloride (VBG) 104 mmol/L (98-106); Hemoglobin (Hb) 16.6 g/dL (11.7-15.5); Potassium (VBG) 4.58 mmol/L (3.70-5.30); Sodium 135.4 mmol/L (133-146)
[2021-04-27] MEDS ORDERED: INSULIN REGULAR IN 0.9 % NACL 100 UNIT/100 ML BAG ONE (13:40)
[2021-04-27 13:41] LABS: Carbon Dioxide Less than 8 mmol/L (22-29)
[2021-04-27] MEDS ORDERED: Sodium Bicarb 50 MEQ/50 ML Abboject 8.4% SYRINGE ONE (13:42)
[2021-04-27 13:49] LABS: Band 9 % (5-11); Lymphocytes 12 % (21-51); MDiff Complete? YES; Monocytes 5 % (0-10); Neutrophil 74 % (42-75); Platelet Morphology Comment Appears Adequate; Polychromasia SLIGHT = 2-3 cells (100X) (0-2/hpf)
[2021-04-27] MEDS ORDERED: NS 0.9% w/ 20 MEQ KCL 1,000 ML ONE (14:01)
[2021-04-27] MEDS ORDERED: Dextrose 5% in Water 1,000 ML IV PRN (14:15)
[2021-04-27] MEDS ORDERED: Sodium Chloride 0.9% 1,000 ML IV SCH (14:15)
[2021-04-27] MEDS ORDERED: HUMULIN R 100 UNITS in Sodium Chloride 0.9% 100 ML IVPB SCH ×2 (14:15→16:11)
[2021-04-27] MEDS ORDERED: Dextrose 50% Abboject 50 ML SYRINGE SLOW IVP PRN (14:15)
[2021-04-27] MEDS ORDERED: Sodium Bicarb 50 MEQ/50 ML Abboject 8.4% SYRINGE IVP SCH (14:15)
[2021-04-27] MEDS ORDERED: NS 0.9% w/ 20 MEQ KCL 1,000 ML/1,000 ML BAG IV PRN ×2 (14:15)
[2021-04-27] MEDS ORDERED: Cefepime 2 GM VIAL ONE (14:53)
[2021-04-27 15:41] LABS: pH (venous) 6.99 (7.32-7.43)
[2021-04-27 15:42] LABS: Actual Bicarbonate (HCO3v) 4 mEq/L (22-28); Analyzer IN Cardio ER
[2021-04-27 16:07] LABS: Actual Bicarbonate (HCO3a) 4.2 mEq/L (22-28); Analyzer IN Cardio ER; Base Excess (BEa) -23.4 mEq/L (-2.0 to +3.0); Calcium, Ionized (arterial) 1.25 mmol/L (1.12-1.30); Carboxyhemoglobin (COHb) 0.1 gm% (0.0-3.0); Hemoglobin (Hb) 14.8 g/dL (12.0-16.0); O2 Tension (PaO2), arterial 180.5 mmHg (80.0-100.0); Potassium - ABG Lab 3.73 mmol/L (3.70-5.30)
[2021-04-27] MEDS ORDERED: Sodium Chloride 0.9% 1,000 ML IV PRN ×4 (16:11)
[2021-04-27] MEDS ORDERED: Acetaminophen 325 MG TAB PO PRN (16:11)
[2021-04-27] MEDS ORDERED: Vancomycin 1 GM in Premix Bag 1 BAG IVPB SCH ×2 (16:11→18:15)
[2021-04-27] MEDS ORDERED: Electrolyte Replacement Protocol 1 EACH IVPB ONE (16:11)
[2021-04-27] MEDS ORDERED: Dextrose 5 %-0.45 % NaCl 1,000 ML IV PRN (16:11)
[2021-04-27] MEDS ORDERED: NS 0.9% w/ 20 MEQ KCL 1,000 ML IV PRN ×2 (16:11)
[2021-04-27] MEDS ORDERED: Ondansetron PF 4 MG/2 ML Vial IVP PRN (16:11)
[2021-04-27 16:15] LABS: CO2 Tension 14.3 mmHg (35.0-45.0); Puncture Site RBA; pH, Arterial 7.09 (7.35-7.45)
[2021-04-27 16:16] LABS: ALV-art Gradient 15.525 mmHg (0-20)
[2021-04-27 16:42] LABS: SARS-CoV-2 NAA Rapid Test Not Detected (NotDetected)
[2021-04-27 17:03] LABS: Troponin I Less than 0.010 ng/mL (< 0.028)
[2021-04-27 17:40] LABS: BUN (Urea Nitrogen) 14 mg/dL (7.0-18.7); Calc. Creatinine Clearance 0 mL/min (70-130); Calcium 8.2 mg/dL (7.8-10.44); Chloride 114 mmol/L (98-107); Glucose 313 mg/dL (70-105); Potassium 3.8 mmol/L (3.5-5.1); Sodium 137 mmol/L (136-145)
[2021-04-27 17:47] LABS: Carbon Dioxide Less than 8 mmol/L (22-29)
[2021-04-27 18:24] LABS: BUN (Urea Nitrogen) 13 mg/dL (7.0-18.7); Calc. Creatinine Clearance 89 mL/min (70-130); Calcium 8.6 mg/dL (7.8-10.44); Chloride 115 mmol/L (98-107); Glucose 250 mg/dL (70-105); Potassium 3.8 mmol/L (3.5-5.1); Sodium 136 mmol/L (136-145)
[2021-04-27 18:33] LABS: Carbon Dioxide Less than 8 mmol/L (22-29)
[2021-04-27 18:36] LABS: Troponin I Less than 0.010 ng/mL (< 0.028)
[2021-04-27 21:06] LABS: Anion Gap 12 mmol/L (10-20); BUN (Urea Nitrogen) 10 mg/dL (7.0-18.7); Calc. Creatinine Clearance 104 mL/min (70-130); Calcium 7.5 mg/dL (7.8-10.44); Carbon Dioxide 10 mmol/L (22-29); Chloride 116 mmol/L (98-107); Glucose 175 mg/dL (70-105); Potassium 3.8 mmol/L (3.5-5.1); Sodium 134 mmol/L (136-145)
[2021-04-27] MEDS: D5 1/2 NS w/20 mEq KCL 1,000 ML IV PRN (21:26)
[2021-04-28 01:09] LABS: Anion Gap 10 mmol/L (10-20); BUN (Urea Nitrogen) 8 mg/dL (7.0-18.7); Calc. Creatinine Clearance 101 mL/min (70-130); Calcium 7.8 mg/dL (7.8-10.44); Carbon Dioxide 13 mmol/L (22-29); Chloride 115 mmol/L (98-107); Glucose 222 mg/dL (70-105); Potassium 3.6 mmol/L (3.5-5.1); Sodium 134 mmol/L (136-145)
[2021-04-28] MEDS ORDERED: Cefepime 1 GM in Sodium Chloride 0.9% 100 ML IVPB SCH (02:00)
[2021-04-28] MEDS: D5 1/2 NS w/20 mEq KCL 1,000 ML IV PRN ×2 (02:10→05:27)
[2021-04-28 04:30] LABS: Anion Gap 6 mmol/L (10-20); BUN (Urea Nitrogen) 7 mg/dL (7.0-18.7); Calc. Creatinine Clearance 108 mL/min (70-130); Calcium 8.1 mg/dL (7.8-10.44); Carbon Dioxide 15 mmol/L (22-29); Chloride 116 mmol/L (98-107); Glucose 204 mg/dL (70-105); Potassium 3.2 mmol/L (3.5-5.1); Sodium 134 mmol/L (136-145)
[2021-04-28 05:01] LABS: Band 6 % (5-11); Hemoglobin 12.4 g/dL (12.0-16.0); Lymphocytes 18 % (21-51); MDiff Complete? YES; Mean Corpuscular Hemoglobin 28.7 pg (27.0-31.0); Mean Corpuscular Volume 84.6 fL (78.0-98.0); Mean Platelet Volume 7.2 fL (7.4-10.4); Monocytes 12 % (0-10); Neutrophil 63 % (42-75); Platelet Count 261 thou/uL (130-400); RBC Distribution Width 11.2 % (11.5-14.5); Reactive Lymphocytes 1 % (0-10); Red Blood Cell (RBC) Count 4.32 mill/uL (4.20-5.40); White Blood Cell (WBC) Count 12.2 thou/uL (4.8-10.8)
[2021-04-28] MEDS ORDERED: Vancomycin HCl 750 MG in Sodium Chloride 0.9% 250 ML 250 ML IVPB SCH (06:00)
[2021-04-28] MEDS ORDERED: Insulin Regular 300 UNITS/3 ML VIAL SC PRN (08:10)
[2021-04-28] MEDS ORDERED: Dextrose 5% in Water 1,000 ML IV PRN (08:10)
[2021-04-28] MEDS ORDERED: NPH, Human Insulin Isophane 300 UNIT/3 ML VIAL SC SCH ×2 (08:15→21:00)
[2021-04-28 08:25] LABS: Bilirubin Negative (Negative); Blood, Urine Negative (Negative); Clarity Clear (Clear); Glucose, Urine (Dipstick) 200 mg/dL (Negative); Ketone, Urine 40 mg/dL (Negative); Leukocyte 75 Leu/uL (Negative); Nitrite Negative (Negative); Protein, Urine (Dipstick) Negative (Neg-Trace); RBC/HPF 0-3 HPF (0-3); Specific Gravity, Urine 1.008 (1.002-1.036); Squamous Epithelial 0-3 HPF (0-3); Urobilinogen Normal mg/dL (Less than 2); WBC/HPF 0-3 HPF (0-3); pH, Urine 5.5 (5.0-9.0)
[2021-04-28] MEDS: 1/2 NS w/KCL 20 mEq 1,000 ML IV SCH ×2 (08:33→20:23)
[2021-04-28 08:40] LABS: Bacteria/HPF 1+ HPF (None Seen)
[2021-04-28 08:45] LABS: Yeast-Budding 1+ HPF (None Seen)
[2021-04-28 08:46] LABS: Urine Culture Reflex Yes Yes
[2021-04-28 11:17] LABS: Pregnancy Test - Urine (BHCG) Negative (Negative); Pregu Control Background? CLEAR/WHITE (CLR/WHITE); Pregu Control Bar Appear? YES (CONTROL BAR); Specific Gravity 1.008 (1.002-1.036)
[2021-04-28 12:27] VITALS: BMI 21.5
[2021-04-28] MEDS ORDERED: Magnesium 2 GM/50 ML 2 GM in Premix Bag 1 BAG IVPB SCH (15:45)
[2021-04-28] MEDS ORDERED: Enoxaparin Sodium 40 MG/0.4 ML SYRINGE SC SCH (18:00)
[2021-04-28] MEDS: K-Phos Neutral 250 MG TAB PO SCH (20:23)
[2021-04-29] MEDS: 1/2 NS w/KCL 20 mEq 1,000 ML IV SCH ×3 (01:36→09:58)
[2021-04-29] MEDS: Insulin Regular 300 UNITS/3 ML VIAL SC PRN ×2 (05:12→13:31)
[2021-04-29 07:06] LABS: Anion Gap 10 mmol/L (10-20); BUN (Urea Nitrogen) 4 mg/dL (7.0-18.7); Calc. Creatinine Clearance 158 mL/min (70-130); Calcium 7.9 mg/dL (7.8-10.44); Carbon Dioxide 22 mmol/L (22-29); Chloride 109 mmol/L (98-107); Glucose 235 mg/dL (70-105); Magnesium 1.5 mg/dL (1.6-2.6); Phosphorus 2.2 mg/dL (2.3-4.7); Potassium 3.3 mmol/L (3.5-5.1); Sodium 138 mmol/L (136-145)
[2021-04-29 07:27] VITALS: BP 113/78; TEMP 98.5
[2021-04-29] MEDS ORDERED: NPH, Human Insulin Isophane 300 UNIT/3 ML VIAL SC SCH (09:00)
[2021-04-29] MEDS ORDERED: Magnesium Sulfate 4 GM in Sodium Chloride 0.9% 250 ML 250 ML IVPB SCH (09:00)
[2021-04-29] MEDS ORDERED: PHOS-NAK 1 PKT PACK PO SCH (09:00)
[2021-04-29] MEDS: K-Phos Neutral 250 MG TAB PO SCH ×2 (10:27→13:29)
== END 2021-04-29 14:05 | disposition home or self-care (01) | DRG 637 ==
LOC: ERS 12:18 → CCU 14:37 → T4-B 04-28 13:58
PROVIDERS: ADMIT Internal Medicine; ATTEND Internal Medicine
DX: E10.10 Type 1 diabetes mellitus with ketoacidosis without coma (principal); E43 Unspecified severe protein-calorie malnutrition; N17.9 Acute kidney failure, unspecified; E87.1 Hypo-osmolality and hyponatremia; R65.10 Systemic inflammatory response syndrome (SIRS) of non-infectious origin without acute organ dysfunction; E87.6 Hypokalemia; E83.42 Hypomagnesemia; E86.0 Dehydration; Z20.822 Contact with and (suspected) exposure to COVID-19; E83.39 Other disorders of phosphorus metabolism; Z68.21 Body mass index [BMI] 21.0-21.9, adult; Z79.51 Long term (current) use of inhaled steroids; Z79.899 Other long term (current) drug therapy
CPT/HCPCS: 0240U; 36415; 36416; 36600; 71045; 80048; 80053; 81001; 81025; 82010; 82805; 83605; 83690; 83735; 84100; 84484; 85007; 85025; 85027; 87040; 87086; 93005; 94660; J0692; J1815; J2405; J3370; J3475; J3480; J3490; J7050

== ENCOUNTER 2022-02-11 21:00 | Inpatient (IN) | payer SELFPAY ==
[2022-02-11] MEDS ORDERED: Ondansetron PF 4 MG/2 ML Vial IVP PRN (22:15)
[2022-02-11] MEDS ORDERED: Dextrose 5% in Water 1,000 ML IV PRN (22:15)
[2022-02-11] MEDS ORDERED: Electrolyte Replacement Protocol FS PRN (22:15)
[2022-02-11] MEDS ORDERED: NS 0.9% w/ 20 MEQ KCL 1,000 ML/1,000 ML BAG IV PRN (22:15)
[2022-02-11] MEDS ORDERED: Sodium Chloride 0.9% 1,000 ML IV PRN ×4 (22:15)
[2022-02-11] MEDS ORDERED: Insulin Regular 300 UNITS/3 ML VIAL IVP SCH (22:15)
[2022-02-11] MEDS ORDERED: Ondansetron ODT 4 MG TAB SL PRN (22:15)
[2022-02-11] MEDS ORDERED: HUMULIN R 100 UNITS in Sodium Chloride 0.9% 100 ML IVPB SCH (22:15)
[2022-02-11] MEDS ORDERED: Dextrose 5 %-0.45 % NaCl 1,000 ML IV PRN (22:15)
[2022-02-11] MEDS ORDERED: Dextrose 50% Abboject 50 ML SYRINGE SLOW IVP PRN (22:15)
[2022-02-11 22:17] VITALS: BMI 19.3
[2022-02-11 23:30] LABS: BUN (Urea Nitrogen) 11 mg/dL (7.0-18.7); Calc. Creatinine Clearance 100 mL/min (70-130); Calcium 7.7 mg/dL (7.8-10.44); Chloride 115 mmol/L (98-107); Estimated GFR 122; Glucose 277 mg/dL (70-105); Potassium 3.5 mmol/L (3.5-5.1); Sodium 135 mmol/L (136-145)
[2022-02-11 23:32] LABS: Troponin I Less than 0.010 ng/mL (< 0.028)
[2022-02-11 23:46] LABS: Carbon Dioxide Less than 8 mmol/L (22-29)
[2022-02-11] MEDS: NS 0.9% w/ 20 MEQ KCL 1,000 ML/1,000 ML BAG IV PRN (23:47)
[2022-02-12] MEDS: NS 0.9% w/ 20 MEQ KCL 1,000 ML/1,000 ML BAG IV PRN (02:07)
[2022-02-12] MEDS: Acetaminophen 325 MG TAB PO PRN (02:16)
[2022-02-12 02:33] LABS: #Basophils 0.1 thou/uL (0.0-0.2); #Monocytes 0.8 thou/uL (0.11-0.59); #Neutrophils 10.1 thou/uL (1.40-6.50); %Basophils 0.4 % (0.0-1.0); %Eosinophils 0.1 % (0.0-10.0); %Lymphocytes 21.6 % (21.0-51.0); %Neutrophils 71.9 % (42.0-75.0); Hemoglobin 11.7 g/dL (12.0-16.0); Mean Corpuscular HGB CONC 35.6 g/dL (32.0-36.0); Mean Corpuscular Hemoglobin 30.5 pg (27.0-31.0); Mean Corpuscular Volume 85.5 fL (78.0-98.0); Platelet Count 297 thou/uL (130-400); Red Blood Cell (RBC) Count 3.84 mill/uL (4.20-5.40)
[2022-02-12 02:37] LABS: Hemoglobin A1c Greater than 14.0 % (4.0-6.0)
[2022-02-12 02:49] LABS: Troponin I Less than 0.010 ng/mL (< 0.028)
[2022-02-12 02:59] LABS: Anion Gap 11 mmol/L (10-20); BUN (Urea Nitrogen) 8 mg/dL (7.0-18.7); Calc. Creatinine Clearance 117 mL/min (70-130); Calcium 7.3 mg/dL (7.8-10.44); Chloride 119 mmol/L (98-107); Estimated GFR 127; Glucose 138 mg/dL (70-105); Magnesium 1.2 mg/dL (1.6-2.6); Potassium 3.4 mmol/L (3.5-5.1); Sodium 136 mmol/L (136-145)
[2022-02-12 03:03] LABS: Carbon Dioxide 9 mmol/L (22-29)
[2022-02-12] MEDS ORDERED: Potassium Chloride 20 MEQ in Premix Bag 1 BAG IVPB SCH (03:30)
[2022-02-12] MEDS ORDERED: Magnesium Sulfate In Water 4 GM in Premix Bag 1 BAG IVPB SCH (03:30)
[2022-02-12] MEDS ORDERED: Potassium Phosphate 22 MMOL in Sodium Chloride 0.9% 250 ML 250 ML IVPB SCH (04:00)
[2022-02-12] MEDS: D5 1/2 NS w/20 mEq KCL 1,000 ML IV PRN ×2 (04:12→06:18)
[2022-02-12 04:54] LABS: Bilirubin Negative (Negative); Blood, Urine Trace (Negative); Clarity Turbid (Clear); Glucose, Urine (Dipstick) >=1000 mg/dL (Negative); Ketone, Urine 150 mg/dL (Negative); Leukocyte 250 Leu/uL (Negative); Nitrite Negative (Negative); Protein, Urine (Dipstick) 20 mg/dL (Neg-Trace); Specific Gravity, Urine 1.008 (1.002-1.036); Urobilinogen Normal mg/dL (Less than 2); pH, Urine 5.5 (5.0-9.0)
[2022-02-12 05:06] LABS: Bacteria/HPF 1+ HPF (None Seen); RBC/HPF 0-3 HPF (0-3); Squamous Epithelial 0-3 HPF (0-3); WBC/HPF 0-3 HPF (0-3)
[2022-02-12 05:08] LABS: Urine Culture Reflex Yes Yes
[2022-02-12 07:02] LABS: Anion Gap 13 mmol/L (10-20); BUN (Urea Nitrogen) 6 mg/dL (7.0-18.7); Calc. Creatinine Clearance 108 mL/min (70-130); Calcium 7.2 mg/dL (7.8-10.44); Chloride 116 mmol/L (98-107); Estimated GFR 125; Glucose 206 mg/dL (70-105); Potassium 4.1 mmol/L (3.5-5.1); Sodium 134 mmol/L (136-145)
[2022-02-12 07:21] LABS: Carbon Dioxide 9 mmol/L (22-29)
[2022-02-12] MEDS: Enoxaparin Sodium 40 MG/0.4 ML SYRINGE SC SCH (09:18)
[2022-02-12 11:09] LABS: Anion Gap 9 mmol/L (10-20); BUN (Urea Nitrogen) 5 mg/dL (7.0-18.7); Calc. Creatinine Clearance 103 mL/min (70-130); Calcium 7.6 mg/dL (7.8-10.44); Carbon Dioxide 13 mmol/L (22-29); Chloride 115 mmol/L (98-107); Estimated GFR 123; Glucose 284 mg/dL (70-105); Magnesium 1.9 mg/dL (1.6-2.6); Phosphorus 1.9 mg/dL (2.3-4.7); Potassium 4.2 mmol/L (3.5-5.1); Sodium 133 mmol/L (136-145)
[2022-02-12] MEDS ORDERED: Dextrose 5% in Water 1,000 ML IV PRN (12:14)
[2022-02-12] MEDS ORDERED: Sodium Bicarb 50 MEQ/50 ML VIAL IVP SCH (12:15)
[2022-02-12] MEDS ORDERED: Insulin Glargine 30 UNITS/0.3 ML VIAL SC SCH ×2 (13:00→21:00)
[2022-02-12] MEDS: Lactated Ringer's 1,000 ML IV SCH (13:09)
[2022-02-12] MEDS: cefTRIAXone\\ROCEPHIN 1 GM in Sodium Chloride 0.9% 100 ML IVPB SCH (13:09)
[2022-02-12] MEDS ORDERED: Magnesium 2 GM/50 ML(in water) 2 GM in Premix Bag 1 BAG IVPB SCH (14:00)
[2022-02-12 16:52] LABS: Anion Gap 12 mmol/L (10-20); BUN (Urea Nitrogen) 4 mg/dL (7.0-18.7); Calc. Creatinine Clearance 108 mL/min (70-130); Calcium 7.5 mg/dL (7.8-10.44); Carbon Dioxide 15 mmol/L (22-29); Chloride 114 mmol/L (98-107); Estimated GFR 125; Glucose 190 mg/dL (70-105); Potassium 3.8 mmol/L (3.5-5.1); Sodium 137 mmol/L (136-145)
[2022-02-12] MEDS: HumaLOG 300 UNITS/3 ML VIAL SC PRN (22:18)
[2022-02-13] MEDS: Lactated Ringer's 1,000 ML IV SCH ×4 (00:11→20:04)
[2022-02-13 07:03] LABS: #Basophils 0.1 thou/uL (0.0-0.2); #Eosinphils 0.1 thou/uL (0.0-0.7); #Lymphocytes 2.5 thou/uL (1.20-3.40); #Monocytes 0.6 thou/uL (0.11-0.59); #Neutrophils 3.8 thou/uL (1.40-6.50); %Basophils 0.9 % (0.0-1.0); %Eosinophils 0.8 % (0.0-10.0); %Monocytes 8.7 % (0.0-10.0); %Neutrophils 54.6 % (42.0-75.0); Hemoglobin 11.3 g/dL (12.0-16.0); Mean Corpuscular HGB CONC 32.7 g/dL (32.0-36.0); Mean Corpuscular Hemoglobin 27.6 pg (27.0-31.0); Mean Corpuscular Volume 84.3 fL (78.0-98.0); Mean Platelet Volume 7.5 fL (7.4-10.4); Platelet Count 297 thou/uL (130-400); RBC Distribution Width 11.3 % (11.5-14.5); Red Blood Cell (RBC) Count 4.11 mill/uL (4.20-5.40)
[2022-02-13 07:31] LABS: ALT (SGPT) 9 U/L (8-55); AST (SGOT) 10 U/L (5-34); Albumin 2.8 g/dL (3.5-5.0); Alkaline Phosphatase 145 U/L (40-110); Anion Gap 10 mmol/L (10-20); BUN (Urea Nitrogen) 4 mg/dL (7.0-18.7); Bilirubin, Total 0.2 mg/dL (0.2-1.2); Calc. Creatinine Clearance 103 mL/min (70-130); Calcium 7.8 mg/dL (7.8-10.44); Carbon Dioxide 22 mmol/L (22-29); Chloride 108 mmol/L (98-107); Estimated GFR 123; Globulin 2.8 g/dL (2.4-3.5); Glucose 383 mg/dL (70-105); Magnesium 1.7 mg/dL (1.6-2.6); Phosphorus 1.5 mg/dL (2.3-4.7); Potassium 3.5 mmol/L (3.5-5.1); Protein, Total 5.6 g/dL (6.0-8.3); Sodium 136 mmol/L (136-145)
[2022-02-13] MEDS ORDERED: Insulin Glargine 30 UNITS/0.3 ML VIAL SC SCH ×2 (09:00→10:45)
[2022-02-13] MEDS ORDERED: Potassium Chloride 20 MEQ TAB PO SCH (09:30)
[2022-02-13] MEDS ORDERED: Magnesium 2 GM/50 ML(in water) 2 GM in Premix Bag 1 BAG IVPB SCH (10:00)
[2022-02-13] MEDS: PHOS-NAK 1 PKT PACK PO SCH ×4 (10:53→20:51)
[2022-02-13] MEDS: Enoxaparin Sodium 40 MG/0.4 ML SYRINGE SC SCH (10:54)
[2022-02-13] MEDS: HumaLOG 300 UNITS/3 ML VIAL SC PRN ×3 (10:57→20:51)
[2022-02-13] MEDS: cefTRIAXone\\ROCEPHIN 1 GM in Sodium Chloride 0.9% 100 ML IVPB SCH (11:05)
[2022-02-13] MEDS: Insulin Glargine 30 UNITS/0.3 ML VIAL SC SCH (20:05)
[2022-02-14 03:58] LABS: #Eosinphils 0.1 thou/uL (0.0-0.7); #Lymphocytes 3.1 thou/uL (1.20-3.40); #Monocytes 0.5 thou/uL (0.11-0.59); #Neutrophils 2.6 thou/uL (1.40-6.50); %Basophils 0.2 % (0.0-1.0); %Eosinophils 0.9 % (0.0-10.0); %Lymphocytes 49.3 % (21.0-51.0); %Monocytes 7.8 % (0.0-10.0); %Neutrophils 41.8 % (42.0-75.0); Hemoglobin 11.9 g/dL (12.0-16.0); Mean Corpuscular HGB CONC 33.7 g/dL (32.0-36.0); Mean Corpuscular Hemoglobin 28.4 pg (27.0-31.0); Mean Corpuscular Volume 84.1 fL (78.0-98.0); Mean Platelet Volume 7.5 fL (7.4-10.4); Platelet Count 314 thou/uL (130-400); RBC Distribution Width 11.2 % (11.5-14.5); Red Blood Cell (RBC) Count 4.18 mill/uL (4.20-5.40); White Blood Cell (WBC) Count 6.3 thou/uL (4.8-10.8)
[2022-02-14 04:12] LABS: Magnesium 1.8 mg/dL (1.6-2.6)
[2022-02-14 04:27] LABS: Anion Gap 10 mmol/L (10-20); BUN (Urea Nitrogen) 4 mg/dL (7.0-18.7); Calc. Creatinine Clearance 131 mL/min (70-130); Calcium 8.7 mg/dL (7.8-10.44); Carbon Dioxide 28 mmol/L (22-29); Chloride 105 mmol/L (98-107); Estimated GFR 131; Glucose 182 mg/dL (70-105); Sodium 139 mmol/L (136-145)
[2022-02-14] MEDS: Lactated Ringer's 1,000 ML IV SCH (06:03)
[2022-02-14] MEDS: HumaLOG 300 UNITS/3 ML VIAL SC PRN ×4 (06:05→21:13)
[2022-02-14] MEDS ORDERED: Magnesium 2 GM/50 ML(in water) 2 GM in Premix Bag 1 BAG IVPB SCH (08:00)
[2022-02-14] MEDS: Enoxaparin Sodium 40 MG/0.4 ML SYRINGE SC SCH (08:25)
[2022-02-14] MEDS ORDERED: Insulin Glargine 30 UNITS/0.3 ML VIAL SC SCH (09:00)
[2022-02-14] MEDS: cefTRIAXone\\ROCEPHIN 1 GM in Sodium Chloride 0.9% 100 ML IVPB SCH (11:17)
[2022-02-14] MEDS: Insulin Glargine 30 UNITS/0.3 ML VIAL SC SCH (21:12)
[2022-02-15] MEDS: HumaLOG 300 UNITS/3 ML VIAL SC PRN (06:32)
[2022-02-15] MEDS: Acetaminophen 325 MG TAB PO PRN (06:33)
[2022-02-15 08:27] VITALS: BP 109/75; TEMP 97.9
[2022-02-15] MEDS ORDERED: Enoxaparin Sodium 30 MG/0.3 ML SYRINGE SC SCH (09:00)
[2022-02-15] MEDS ORDERED: Insulin Glargine 30 UNITS/0.3 ML VIAL SC SCH ×2 (09:00→21:00)
== END 2022-02-15 11:02 | disposition home or self-care (01) | DRG 638 ==
LOC: IMCU/EMU 22:04 → T4-A 02-14 10:04
PROVIDERS: ADMIT Internal Medicine; ATTEND Internal Medicine
DX: E10.10 Type 1 diabetes mellitus with ketoacidosis without coma (principal); N30.00 Acute cystitis without hematuria; Z20.822 Contact with and (suspected) exposure to COVID-19; E86.0 Dehydration; Z79.4 Long term (current) use of insulin
CPT/HCPCS: 36415; 36416; 80048; 81001; 82010; 83036; 83735; 84100; 84484; 85025; 87077; 87086; 87186; J0696; J1650; J1815; J2405; J3475; J3480; J3490; J7050; J7120; U0003; U0005

== ENCOUNTER 2023-12-05 16:07 | Emergency (ER) | payer SELFPAY ==
[~2023-12-05 16:07] MED LIST: Iopamidol-370 76% 500 ML MDV (1 ML CHARGE) ONE
[2023-12-05 16:57] LABS: #Basophils 0.03 10x3/uL (0.0-0.2); %Basophils 0.3 % (0.0-1.0); %Eosinophils 1.1 % (0.0-10.0); %Lymphocytes 22.7 % (21.0-51.0); %Monocytes 9.2 % (0.0-10.0); %Neutrophils 66.4 % (42.0-75.0); Hemoglobin 10.3 g/dL (12.0-16.0); Mean Corpuscular HGB CONC 31.2 g/dL (32.0-36.0); Mean Corpuscular Hemoglobin 25.1 pg (27.0-31.0); Mean Corpuscular Volume 80.3 fL (78.0-98.0); Mean Platelet Volume 10.3 fL (7.4-10.4); Platelet Count 408 10x3/uL (130-400); RBC Distribution Width 13.2 % (11.5-14.5); Red Blood Cell (RBC) Count 4.11 mill/uL (4.20-5.40)
[2023-12-05 17:11] LABS: BHCG - Serum Negative (NEGATIVE); Pregs Control Background? CLEAR/WHITE (CLR/WHITE); Pregs Control Bar Appear? YES (CONTROL BAR)
[2023-12-05 18:01] LABS: ALT (SGPT) 13 U/L (8-55); AST (SGOT) 11 U/L (5-34); Albumin 3.2 g/dL (3.5-5.0); Alkaline Phosphatase 293 U/L (40-110); Anion Gap 14 mmol/L (10-20); BUN (Urea Nitrogen) 15 mg/dL (7.0-18.7); Bilirubin, Total 0.3 mg/dL (0.2-1.2); Calc. Creatinine Clearance 0 mL/min (70-130); Calcium 9.3 mg/dL (7.8-10.44); Carbon Dioxide 22 mmol/L (22-29); Chloride 104 mmol/L (98-107); Estimated GFR 112; Globulin 4.2 g/dL (2.4-3.5); Glucose 505 mg/dL (70-105); Potassium 4.5 mmol/L (3.5-5.1); Protein, Total 7.4 g/dL (6.0-8.3); Sodium 135 mmol/L (136-145)
[2023-12-05 18:59] LABS: INR-International Normal Ratio 0.9; Prothrombin Time 12.3 sec (12.0-14.7)
[2023-12-05 19:00] LABS: PTT 31.5 sec (22.9-36.1)
[2023-12-05] MEDS ORDERED: HumaLOG 300 UNITS/3 ML VIAL ONE (19:01)
[2023-12-05 19:02] LABS: Troponin I Less than 0.010 ng/mL (< 0.028)
[2023-12-05] MEDS ORDERED: Apixaban 5 MG TAB ONE ×2 (20:35→20:37)
[2023-12-05] MEDS ORDERED: Dextrose 10% in Water 250 ML ONE (21:33)
== END 2023-12-06 00:22 | disposition home or self-care (01) ==
LOC: ERS 16:07
DX: I82.401 Acute embolism and thrombosis of unspecified deep veins of right lower extremity (principal); E10.65 Type 1 diabetes mellitus with hyperglycemia
CPT/HCPCS: 36415; 36416; 71275; 80053; 84484; 84703; 85025; 85610; 85730; 93005; J1815; Q9967

== ENCOUNTER 2023-12-18 11:18 | Emergency (ER) | payer SELFPAY ==
[2023-12-18 12:09] LABS: #Basophils 0.04 10x3/uL (0.0-0.2); %Basophils 0.3 % (0.0-1.0); %Eosinophils 1.9 % (0.0-10.0); %Lymphocytes 16.9 % (21.0-51.0); %Monocytes 7.4 % (0.0-10.0); %Neutrophils 73.1 % (42.0-75.0); Hemoglobin 10.4 g/dL (12.0-16.0); Mean Corpuscular HGB CONC 32.5 g/dL (32.0-36.0); Mean Corpuscular Hemoglobin 25.7 pg (27.0-31.0); Mean Platelet Volume 9.6 fL (7.4-10.4); Platelet Count 422 10x3/uL (130-400); RBC Distribution Width 12.9 % (11.5-14.5); Red Blood Cell (RBC) Count 4.05 mill/uL (4.20-5.40)
[2023-12-18 12:25] LABS: INR-International Normal Ratio 1.3; Prothrombin Time 16.4 sec (12.0-14.7)
[2023-12-18 12:30] LABS: ALT (SGPT) 9 U/L (8-55); AST (SGOT) 11 U/L (5-34); Albumin 3.1 g/dL (3.5-5.0); Alkaline Phosphatase 229 U/L (40-110); Anion Gap 14 mmol/L (10-20); BUN (Urea Nitrogen) 19 mg/dL (7.0-18.7); Bilirubin, Total 0.6 mg/dL (0.2-1.2); Calc. Creatinine Clearance 0 mL/min (70-130); Calcium 9.2 mg/dL (7.8-10.44); Carbon Dioxide 24 mmol/L (22-29); Chloride 102 mmol/L (98-107); Estimated GFR 121; Globulin 4.4 g/dL (2.4-3.5); Glucose 216 mg/dL (70-105); Protein, Total 7.5 g/dL (6.0-8.3); Sodium 136 mmol/L (136-145)
[2023-12-18 12:35] LABS: Troponin I Less than 0.010 ng/mL (< 0.028)
== END 2023-12-18 14:02 | disposition home or self-care (01) ==
LOC: ERS 11:18
DX: I82.401 Acute embolism and thrombosis of unspecified deep veins of right lower extremity (principal); R07.89 Other chest pain; E10.9 Type 1 diabetes mellitus without complications; Z79.4 Long term (current) use of insulin
CPT/HCPCS: 36415; 71275; 80053; 84484; 85025; 85610; 85730; 93005; Q9967